=== PATIENT | male | born 1940 | race Caucasian/White ===

== ENCOUNTER 2018-07-23 06:45 | Day surgery (SDC) | payer MEDICARE ==
[~2018-07-23] VITALS: Ht 185.4 cm; Wt 108.9 kg
[~2018-07-23 06:45] MED LIST: DIGITEK PO; DOXA2TAB2 PO; FEXO-59 PO; FLUTICASONE NASAL NASAL; NIAC500C3 PO; PHENOBARBITAL PO; PROP40TA7 PO; RIVA20TA PO; SIMV40TA59 PO; SODIUM CHLORIDE 0.9% 1000ML 1,000 ML IV ONE; TADA20TA PO; ZOLPIDEM PO
[2018-07-23 07:32] VITALS: BP 164/68
[2018-07-23] MEDS ORDERED: PROPOFOL 10 MG/ML 20ML VIAL IV ONE (07:54)
[2018-07-23 08:14] VITALS: BP 130/74
[2018-07-23 08:19] VITALS: BP 130/74
[2018-07-23 08:24] VITALS: BP 134/74
== END 2018-07-23 08:47 | disposition home or self-care (01) ==
LOC: ENDO 06:45 → DAH 06:45 → ENDO 08:47
PROVIDERS: ATTEND Internal Medicine Gastroenterology
DX: Z12.11 Encounter for screening for malignant neoplasm of colon (principal); D12.2 Benign neoplasm of ascending colon; K63.5 Polyp of colon; D12.3 Benign neoplasm of transverse colon; D12.4 Benign neoplasm of descending colon; K62.1 Rectal polyp; Z86.010 Personal history of colon polyps; Z95.0 Presence of cardiac pacemaker; E78.2 Mixed hyperlipidemia; K57.30 Diverticulosis of large intestine without perforation or abscess without bleeding; Z98.890 Other specified postprocedural states; Z79.899 Other long term (current) drug therapy; Z68.37 Body mass index [BMI] 37.0-37.9, adult; Z79.01 Long term (current) use of anticoagulants
CPT/HCPCS: 45380; 45385; 88305; A4606; J2704; J7030

== ENCOUNTER → 2020-08-14 | Outpatient (CLI) | payer MEDICARE ==
[~2020-08-14] MED LIST changes: -DOXA2TAB2 PO; -FEXO-59 PO; -FLUTICASONE NASAL NASAL; -SODIUM CHLORIDE 0.9% 1000ML 1,000 ML IV ONE; -ZOLPIDEM PO
== END | disposition home or self-care (01) ==
LOC: RAH 11:02
PROVIDERS: ATTEND Urology
DX: N43.3 Hydrocele, unspecified (principal); K40.90 Unilateral inguinal hernia, without obstruction or gangrene, not specified as recurrent
CPT/HCPCS: 76870

== ENCOUNTER 2023-12-18 02:51 | Observation (INO) | payer MEDICARE ==
[~2023-12-18] VITALS: Ht 182.9 cm; Wt 118.3 kg
[2023-12-18] VITALS (8 sets, daily range): BP systolic 137–138; BP diastolic 72–73; PULSE 70–80; RESP 17–20; O2SAT 95–97
[~2023-12-18 02:51] MED LIST changes: -NIAC500C3 PO; +NIAC500C9 PO
[2023-12-18] MEDS: IpraTROPium/alBUTERol SULFATE 3 ML SOLUTION IH ONE ×2 (03:26→12:07)
[2023-12-18] MEDS: BUDESONIDE 0.5 MG/2 ML INH IH SCH (03:27)
[2023-12-18] MEDS: BUDESONIDE 0.5 MG/2 ML INH IH ONE (03:31)
[2023-12-18 04:08] LABS: BASOPHILS # (AUTO) 0.02 K/uL (0.00-0.20); BASOPHILS % (AUTO) 0.3 % (0.0-5.0); EOSINOPHILS # (AUTO) 0.06 K/uL (0.00-0.70); EOSINOPHILS % (AUTO) 0.8 % (0.0-8.0); IMMATURE GRANULOCYTE ABSOLUTE 0.02 K/uL (0-1); LYMPHOCYTES # (AUTO) 0.9 K/uL (1.0-4.8); LYMPHOCYTES % (AUTO) 12.7 % (21.0-51.0); MEAN CORPUSCULAR HEMOGLOBIN 31.3 pg (27.0-33.0); MEAN CORPUSCULAR HGB CONC 33.6 g/dL (32.0-36.0); MEAN CORPUSCULAR VOLUME 93.3 fL (79-99); MONOCYTES # (AUTO) 0.7 K/uL (0.1-1.0); MONOCYTES % (AUTO) 9.8 % (3.0-13.0); NEUTROPHILS # (AUTO) 5.6 K/uL (1.8-7.7); NEUTROPHILS % (AUTO) 76.1 % (40.0-77.0); PLATELET COUNT (AUTO) 87 K/uL (130-400); RED BLOOD CELL COUNT(AUTO) 3.86 MIL/uL (4.50-6.20); RED CELL DISTRIBUTION WIDTH 13.3 % (11.0-15.5); WHITE BLOOD COUNT (AUTO) 7.3 K/uL (4.8-10.8)
[2023-12-18] MEDS: Solu-medROL 125MG VIAL IVP ONE (04:22)
[2023-12-18] MEDS: ASPIRIN 325MG TAB PO ONE (04:22)
[2023-12-18 04:24] LABS: ALBUMIN 3.5 g/dL (3.5-5.0); BILIRUBIN,TOTAL 0.8 mg/dL (0.2-1.0); CREATININE 0.8 mg/dL (0.5-1.3); POTASSIUM 3.9 mmol/L (3.5-5.1); TOTAL PROTEIN, SERUM 7.2 g/dL (6.0-8.3)
[2023-12-18 05:12] LABS: B-TYPE NATRIURETIC PEPTIDE 143 pg/mL (0-100)
[2023-12-18 05:26] LABS: SARS-CoV-2, RNA, NAAT NEGATIVE SARS CoV-2 (NEGATIVE)
[2023-12-18] MEDS ORDERED: ALBUTEROL 0.083% 2.5 MG/3 ML INH IH PRN (06:30)
[2023-12-18] MEDS ORDERED: DEXTROSE 50%-WATER 50 ML DISP.SYRIN IV PRN (06:30)
[2023-12-18] MEDS ORDERED: acetaMINOPHEN 325 MG TAB PO PRN (06:30)
[2023-12-18] MEDS ORDERED: LACTULOSE 20 GM/30 ML UDCUP PO PRN (06:30)
[2023-12-18] MEDS ORDERED: hydrALAZine 20MG/ML VIAL IV PRN (06:30)
[2023-12-18] MEDS ORDERED: ONDANSETRON 4MG INJ IVP PRN (06:30)
[2023-12-18] MEDS ORDERED: GLUCAGON 1MG KIT 1 MG ML IM PRN (06:30)
[2023-12-18] MEDS: AZITHROMYCIN 250 MG TABLET PO SCH (06:30)
[2023-12-18] MEDS: FUROSEMIDE 40MG VIAL IV ONE (06:45)
[2023-12-18] MEDS: cefTRIAXone 1G VIAL IVPB ONE (06:45)
[2023-12-18] MEDS: INSULIN humuLIN R 100 UNIT/ML 3ML SQ SCH (07:30)
[2023-12-18] MEDS: PANTOPRAZOLE 40 MG TAB DR PO SCH (09:38)
[2023-12-18] MEDS: IpraTROPium/alBUTERol SULFATE 3 ML SOLUTION IH SCH (12:08)
[2023-12-18] MEDS ORDERED: DOXA8TAB81 PO (13:32)
[2023-12-18] MEDS ORDERED: FEXO-263 PO (13:32)
[2023-12-18] MEDS ORDERED: [UNRECOGNIZED DRUG - CODE] PO (13:32)
[2023-12-18] MEDS ORDERED: FOLI0.4T6 PO (13:32)
[2023-12-18] MEDS ORDERED: FINA5TAB41 PO (13:32)
[2023-12-18] MEDS ORDERED: GABA-529 PO (13:32)
[2023-12-18] MEDS ORDERED: CYAN-106 PO (13:32)
[2023-12-18] MEDS ORDERED: ROSU20TA73 PO (13:32)
[2023-12-18] MEDS ORDERED: MAGN100T PO (13:32)
[2023-12-18] MEDS ORDERED: LISI2.5T13 PO (13:32)
[2023-12-18] MEDS ORDERED: FURO20TA4 PO (13:32)
[2023-12-18] MEDS ORDERED: FERR159T2 PO (13:32)
[2023-12-18] MEDS: ENOXAPARIN SODIUM 40 MG/0.4 ML SYRINGE SQ SCH (16:56)
[2023-12-18] MEDS: AZITHROMYCIN 500MG+NS 250ML 250 ML IVPB SCH (20:03)
[2023-12-18] MEDS ORDERED: Solu-medROL 125MG VIAL IVP SCH (21:00)
[2023-12-18] MEDS ORDERED: PHENOBARBITAL 30 MG TAB PO SCH (21:00)
[2023-12-18] MEDS: ATORVASTATIN 40 MG TABLET PO SCH (21:46)
[2023-12-18] MEDS: FERROUS SULFATE 325 MG TABLET.DR PO SCH (21:47)
[2023-12-18] MEDS: PROPRANOLOL HCL 20 MG TAB PO SCH (21:47)
[2023-12-18] MEDS: NIACIN 500 MG SRTAB PO SCH (21:47)
[2023-12-18] MEDS: RIVAROXABAN 20 MG TABLET PO SCH (21:47)
[2023-12-19] VITALS (14 sets, daily range): BP systolic 107–144; BP diastolic 61–90; PULSE 68–85; RESP 17–20; O2SAT 95–97
[2023-12-19 03:59] LABS: RAPID GROUP A STREP negative (NEGATIVE)
[2023-12-19 04:09] LABS: INFLUENZA TYPE A Negative For Type A (NEGATIVE); INFLUENZA TYPE B Negative For Type B (NEGATIVE)
[2023-12-19 04:39] LABS: BASOPHILS # (AUTO) 0.01 K/uL (0.00-0.20); BASOPHILS % (AUTO) 0.1 % (0.0-5.0); HEMATOCRIT 34.3 % (42-54); IMMATURE GRANULOCYTE ABSOLUTE 0.05 K/uL (0-1); LYMPHOCYTES # (AUTO) 0.7 K/uL (1.0-4.8); LYMPHOCYTES % (AUTO) 10.1 % (21.0-51.0); MEAN CORPUSCULAR HEMOGLOBIN 30.8 pg (27.0-33.0); MEAN CORPUSCULAR HGB CONC 32.9 g/dL (32.0-36.0); MEAN CORPUSCULAR VOLUME 93.5 fL (79-99); MONOCYTES # (AUTO) 0.3 K/uL (0.1-1.0); MONOCYTES % (AUTO) 4.9 % (3.0-13.0); NEUTROPHILS # (AUTO) 5.6 K/uL (1.8-7.7); NEUTROPHILS % (AUTO) 84.2 % (40.0-77.0); PLATELET COUNT (AUTO) 109 K/uL (130-400); RED BLOOD CELL COUNT(AUTO) 3.67 MIL/uL (4.50-6.20); RED CELL DISTRIBUTION WIDTH 13.4 % (11.0-15.5); WHITE BLOOD COUNT (AUTO) 6.7 K/uL (4.8-10.8)
[2023-12-19 04:47] LABS: CREATININE 0.9 mg/dL (0.5-1.3); MAGNESIUM 2.3 mg/dL (1.80-2.40); PHOSPHORUS 3.3 mg/dL (2.5-4.9); POTASSIUM 4.7 mmol/L (3.5-5.1)
[2023-12-19] MEDS: CEFTRIAXONE 2GM VIAL IVPB SCH (06:42)
[2023-12-19] MEDS: Fexofenadine HCl 180 MG PO SCH (09:00)
[2023-12-19] MEDS ORDERED: MAGNESIUM GLYCINATE PO SCH (09:00)
[2023-12-19] MEDS: FUROSEMIDE 20 MG TABLET PO SCH (09:51)
[2023-12-19] MEDS: DOXAZOSIN MESYLATE 2 MG TABLET PO SCH (09:52)
[2023-12-19] MEDS: PHENOBARBITAL 1/4 GR TABLET PO SCH (09:52)
[2023-12-19] MEDS: FOLic ACID 1 MG TABLET PO SCH (09:53)
[2023-12-19] MEDS: LISINOPRIL 2.5 MG TABLET PO SCH (09:53)
[2023-12-19] MEDS: FINASTERIDE 5 MG TABLET PO SCH (09:54)
[2023-12-19] MEDS: DIGOXIN 125 MCG TABLET PO SCH (09:54)
[2023-12-19] MEDS: CYANOCOBALAMIN (VITAMIN B-12) 1,000 MCG TABLET PO SCH (09:55)
[2023-12-19] MEDS: GABApentin 100 MG CAPSULE PO SCH (09:55)
[2023-12-19] MEDS: Solu-medROL 125MG VIAL IVP SCH (18:55)
[2023-12-20] VITALS (10 sets, daily range): BP systolic 128–144; BP diastolic 59–78; PULSE 65–74; RESP 18–20; O2SAT 95–97
[2023-12-20] MEDS: LACTULOSE 20 GM/30 ML UDCUP PO ONE (13:52)
== END 2023-12-20 15:00 | disposition home or self-care (01) ==
LOC: EDH 02:51 → EDHIP 06:06 → 4DH 14:20
PROVIDERS: ADMIT Internal Medicine; ATTEND Internal Medicine
DX: J18.9 Pneumonia, unspecified organism (principal); Z20.822 Contact with and (suspected) exposure to COVID-19; I11.0 Hypertensive heart disease with heart failure; I50.22 Chronic systolic (congestive) heart failure; E78.5 Hyperlipidemia, unspecified; I48.91 Unspecified atrial fibrillation; G40.909 Epilepsy, unspecified, not intractable, without status epilepticus; Z79.899 Other long term (current) drug therapy
CPT/HCPCS: 96372; 96365; 96366 ×4; 96375; 96367; 99285; 82550; 84484; 80053; 83880; 85025 ×2; 87071; 87205; 82948 ×8; 36415 ×2; 87635; 71045; 71250; 93005; 84145; 96376 ×2; 83735; 84100; 80048; 87880; 87804 ×2; 93306; 94640; G0378 ×55; J2919 ×5; J0696 ×3; J0456 ×2; J1650; J1940; A4600; 94664

== ENCOUNTER 2024-05-02 07:45 | Inpatient (IN) | payer MEDICARE ==
[~2024-05-02] VITALS: Ht 182.9 cm; Wt 115.7 kg
[~2024-05-02 07:45] MED LIST changes: +CYAN-106 PO; -DIGITEK PO; +DOXA8TAB81 PO; +FERR159T2 PO; +FEXO-263 PO; +FINA5TAB41 PO; +FOLI0.4T6 PO; +FURO20TA4 PO; +GABA-529 PO; +LISI2.5T13 PO; +MAGN100T PO; +MELO-108 PO; +METH4TAB3 PO; +ROSU20TA98 PO; -SIMV40TA59 PO; -TADA20TA PO; +[UNRECOGNIZED DRUG - CODE] PO
[2024-05-02 08:16] LABS: BASOPHILS # (AUTO) 0.02 K/uL (0.00-0.20); BASOPHILS % (AUTO) 0.3 % (0.0-5.0); EOSINOPHILS # (AUTO) 0.16 K/uL (0.00-0.70); EOSINOPHILS % (AUTO) 2.3 % (0.0-8.0); HEMATOCRIT 35.7 % (42-54); IMMATURE GRANULOCYTE ABSOLUTE 0.03 K/uL (0-1); LYMPHOCYTES % (AUTO) 14.4 % (21.0-51.0); MEAN CORPUSCULAR HEMOGLOBIN 31.5 pg (27.0-33.0); MEAN CORPUSCULAR HGB CONC 33.6 g/dL (32.0-36.0); MEAN CORPUSCULAR VOLUME 93.7 fL (79-99); MONOCYTES # (AUTO) 0.6 K/uL (0.1-1.0); MONOCYTES % (AUTO) 8.2 % (3.0-13.0); NEUTROPHILS # (AUTO) 5.2 K/uL (1.8-7.7); NEUTROPHILS % (AUTO) 74.4 % (40.0-77.0); PLATELET COUNT (AUTO) 127 K/uL (130-400); RED BLOOD CELL COUNT(AUTO) 3.81 MIL/uL (4.50-6.20); RED CELL DISTRIBUTION WIDTH 14.3 % (11.0-15.5); WHITE BLOOD COUNT (AUTO) 6.9 K/uL (4.8-10.8)
[2024-05-02 08:25] LABS: CREATININE 0.8 mg/dL (0.5-1.3); POTASSIUM 3.6 mmol/L (3.5-5.1)
[2024-05-02 08:31] LABS: ALBUMIN 3.3 g/dL (3.5-5.0); BILIRUBIN,DIRECT 0.3 mg/dL (0.0-0.3); BILIRUBIN,TOTAL 0.8 mg/dL (0.2-1.0); TOTAL PROTEIN, SERUM 6.5 g/dL (6.0-8.3)
[2024-05-02 08:38] LABS: COVID19 (SARS ANTIGEN RAPID) PRESUMPTIVE NEGATIVE (NEGATIVE); INFLUENZA TYPE A Negative For Type A (NEGATIVE); INFLUENZA TYPE B Negative For Type B (NEGATIVE)
--- NOTE | 2024-05-02 08:40 | EKG ---
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
[2024-05-02] MEDS: CEFTRIAXONE 2GM VIAL IVPB ONE (08:46)
[2024-05-02] MEDS: furoSEMIDE 40MG VIAL IV ONE (08:48)
[2024-05-02 09:04] LABS: B-TYPE NATRIURETIC PEPTIDE 145 pg/mL (0-100)
--- NOTE | 2024-05-02 09:08 | HMCIMG ---
CHEST 1VW REASON: sob COMPARISON: 12/18/2023 FINDINGS: Single view of the chest was obtained. Lungs are clear. There is mild cardiomegaly, unchanged. There is no pulmonary vascular congestion. There is a small left pleural effusion with some associated atelectasis. Mediastinum and bony thorax appear unremarkable. Pacemaker is again noted. IMPRESSION: 1. Mild cardiomegaly. 2. Small left pleural effusion with some basilar atelectasis.
--- NOTE | 2024-05-02 09:15 | ERN ---
ED Note History of Present Illness Stated Complaint: SOB Chief Complaint: Shortness of Breath Time Seen by MD: 07:50 Dictation: 84-year-old male presents to the ED for evaluation of shortness breath onset 1 week ago. Patient reports cough and weakness, but denies any chest pain or any other associated symptoms at this time. Patient has history of a pacemaker. Allergies: Coded Allergies: No Known Drug Allergies (Unverified Allergy, Unknown, 01/25/14) Home Meds Active Scripts Methylprednisolone (Medrol) 4 Mg Tab.ds.pk, 1 TAB PO AD for 6 Days, #21 TAB 0 Refills 6 on day 1 then reduce by one tablet daily until gone Prov:RAQUEL OLIVARES ASSISTANT PROJECT ENGINEER 02/15/24 Meloxicam (Meloxicam) 15 Mg Tablet, 15 MG PO BID for 7 Days, #14 TAB Prov:RAQUEL OLIVARES ASSISTANT PROJECT ENGINEER 02/15/24 Reported Medications Gabapentin (Gabapentin) 100 Mg Capsule, 100 MG PO DAILY, CAP 12/18/23 Folic Acid (Folic Acid) 0.4 Mg Tablet, 800 MCG PO DAILY, TAB 12/18/23 Cyanocobalamin (Vitamin B-12) (Vitamin B12) 1,000 Mcg Tablet, 2000 MCG PO DAILY, TAB 12/18/23 Magnesium Glycinate (Mag Glycinate) 100 Mg Tablet, 500 MG PO DAILY, TAB 12/18/23 Finasteride (Finasteride) 5 Mg Tablet, 5 MG PO DAILY, TAB 12/18/23 Ferrous Sulfate, Dried (Iron) 159 Mg (45 Mg Iron) Tablet.er, 65 MG PO BID, TAB 12/18/23 Lisinopril (Lisinopril) 2.5 Mg Tablet, 2.5 MG PO DAILY, TAB 12/18/23 Rosuvastatin Calcium (Rosuvastatin Calcium) 20 Mg Tablet, 20 MG PO HS, TAB 12/18/23 Doxazosin Mesylate (Doxazosin Mesylate) 8 Mg Tablet, 8 MG PO DAILY, TAB 12/18/23 Fexofenadine HCl (Fexofenadine HCl) 180 Mg Tablet, 180 MG PO DAILY, TAB 12/18/23 Furosemide (Furosemide) 20 Mg Tablet, 20 MG PO DAILY, TAB 12/18/23 Digoxin (Digitek) 125 Mcg (0.125 Mg) Tablet, 125 MCG PO DAILY, TAB 12/18/23 Niacin (Niacin) 500 Mg Capsule.er, 500 MG PO BID, CAP 01/25/14 [Phenobarbital] No Conflict Check, 90 MG PO BID 01/25/14 Rivaroxaban (Xarelto) 20 Mg Tablet, 20 MG PO HS, TAB 01/25/14 Propranolol HCl (Propranolol HCl) 40 Mg Tablet, 40 MG PO HS, TAB 01/25/14 Past Medical History Past Medical History: Heart Disease, Hypertension Additional Past Medical Hx: CHRONIC BACK PAIN Surgical History: Pacer/AICD, Other Surgical History Other: AUREA KNEE SX Review of System Dictation Constitutional: Positive for weakness Negative for fever,chills, and weight loss Eyes: Negative for injury, pain,redness, and discharge ENT: Negative for injury,pain or swelling Cardiovascular: Negative for chest pain, palpitations, and edema Respiratory: Positive for shortness a breath and cough negative for wheezing, Abdomen/GI: Negative for abdominal pain, nausea, vomiting, diarrhea, and constipation Back: Negative for injury and pain : Negative for injury, bleeding and discharge MS/Extremity: Negative for injury and deformity Skin: Negative for rash, and discoloration Neuro: Negative for headache, weakness, numbness, tingling, and seizure Psych: Negative for suicide ideation, homicidal ideation, and hallucinations Initial Vital Sign VS Vital Signs Date Time Temp Pulse Resp B/P (MAP) Pulse Ox O2 Delivery O2 Flow Rate FiO2 05/02/24 07:49 74 17 151/83 98 Nasal Cannula 2.0 05/02/24 07:50 98.8 28 Physical Exam Dictation General: awake, alert, NAD Head/Face: Normocephalic, atraumatic Eyes: PERRL, EOMI, vision at baseline ENT: oral cavity clear, TMs clear, no signs of infection Neck: Trachea midline, supple, no nuchal rigidity Cardiovascular: RRR, normal S1/S2, No MRGs Respiratory: CTAB, no respiratory distress, crackles Abdomen: Soft, non-tender, diffuse abdominal swelling, normal bowel sounds, no guarding or rebound. Skin: Warm, dry, normal turgor, no rash MS/Extremity: Pulses equal, no cyanosis, neurovascular intact, bilateral lower extremity edema with diffuse erythema Neuro: COAx4, GCS 15, strength 5/5, CN 2-12 intact, normal cerebellar exam, normal gait, Psych: Normal behavior, mood, and affect normal Results (Laboratory/Radiology) Laboratory/Radiology Laboratory Tests Test 05/02/24 08:03 05/02/24 08:41 05/02/24 09:46 05/02/24 11:21 White Blood Count 6.9 K/uL (4.8-10.8) Red Blood Count 3.81 MIL/uL (4.50-6.20) L Hemoglobin 12.0 g/dL (14.0-18.0) L Hematocrit 35.7 % (42-54) L Mean Corpuscular Volume 93.7 fL (79-99) Mean Corpuscular Hemoglobin 31.5 pg (27.0-33.0) Mean Corpuscular Hemoglobin Concent 33.6 g/dL (32.0-36.0) Red Cell Distribution Width 14.3 % (11.0-15.5) Platelet Count 127 K/uL (130-400) L Mean Platelet Volume 11.0 fL (7.5-10.5) H Immature Granulocyte % (Auto) 0.4 % (0-1) Neutrophils (%) (Auto) 74.4 % (40.0-77.0) Lymphocytes (%) (Auto) 14.4 % (21.0-51.0) L Monocytes (%) (Auto) 8.2 % (3.0-13.0) Eosinophils (%) (Auto) 2.3 % (0.0-8.0) Basophils (%) (Auto) 0.3 % (0.0-5.0) Neutrophils # (Auto) 5.2 K/uL (1.8-7.7) Lymphocytes # (Auto) 1.0 K/uL (1.0-4.8) Monocytes # (Auto) 0.6 K/uL (0.1-1.0) Eosinophils # (Auto) 0.16 K/uL (0.00-0.70) Basophils # (Auto) 0.02 K/uL (0.00-0.20) Absolute Immature Granulocyte (auto 0.03 K/uL (0-1) Nucleated Red Blood Cells 0.0 % (0.0-0.19) Sodium Level 140 mmol/L (136-145) Potassium Level 3.6 mmol/L (3.5-5.1) Chloride Level 103 mmol/L (101-111) Carbon Dioxide Level 29 mmol/L (21-32) Blood Urea Nitrogen 4 mg/dL (7-18) L Creatinine 0.8 mg/dL (0.5-1.3) Glomerular Filtration Rate Calc 88 mL/min (>90) Random Glucose 116 mg/dL (70-105) H Lactic Acid Level 1.9 mmol/L (0.8-2.5) Total Calcium 8.7 mg/dL (8.5-10.1) Total Bilirubin 0.8 mg/dL (0.2-1.0) Direct Bilirubin 0.3 mg/dL (0.0-0.3) Aspartate Amino Transf (AST/SGOT) 26 U/L (10-37) Alanine Aminotransferase (ALT/SGPT) 27 U/L (12-78) Alkaline Phosphatase 136 U/L (50-136) Total Creatine Kinase 90 U/L (21-232) # Troponin I High Sensitivity 22 ng/L (4-75) B-Type Natriuretic Peptide 145 pg/mL (0-100) H Total Protein 6.5 g/dL (6.0-8.3) Albumin 3.3 g/dL (3.5-5.0) L Influenza Type A Antigen Negative For Type A Influenza Type B Antigen Negative For Type B SARS-CoV-2 Antigen (Rapid) PRESUMPTIVE NEGATIVE Procalcitonin < 0.05 ng/mL (0.05-0.5) L Thyroid Stimulating Hormone (TSH) 1.67 uIU/mL (0.36-3.74) Urine Color YELLOW (YELLOW) Urine Appearance CLEAR (CLEAR) Urine pH 5.5 (5.0-8.0) Urine Specific [place] 1.007 (1.001-1.031) Urine Protein NEGATIVE mg/dL (NEGATIVE) Urine Glucose (UA) NEGATIVE mg/dL (NEGATIVE) Urine Ketones NEGATIVE mg/dL (NEGATIVE) Urine Occult Blood NEGATIVE (NEGATIVE) Urine Nitrate NEGATIVE (NEGATIVE) Urine Bilirubin NEGATIVE mg/dL (NEGATIVE) Urine Urobilinogen 0.2 mg/dL (0.2-1.0) Urine Leukocyte Esterase NEGATIVE Jose/uL Whole Blood Glucose 117 MG/DL (70-110) H Labs Reviewed?: Yes EKG Comment: EKG 05/02/2024 time 8:36 a.m. ventricular rate 70, QRS D 136, QT 429. Ventricular paced rhythm pain no STEMI X-RAY Comment: REASON: sob ORDERING PHYSICIAN: PEG DE LEON MD PROCEDURE: CXR1VW - CHEST 1VW CHEST 1VW REASON: sob COMPARISON: 12/18/2023 FINDINGS: Single view of the chest was obtained. Lungs are clear. There is mild cardiomegaly, unchanged. There is no pulmonary vascular congestion. There is a small left pleural effusion with some associated atelectasis. Mediastinum and bony thorax appear unremarkable. Pacemaker is again noted. IMPRESSION: 1. Mild cardiomegaly. 2. Small left pleural effusion with some basilar atelectasis. DICTATED BY: YANIQUE HERNANDEZ MD DATE: 05/02/24904 ED Course ED Course Orders Procedure Category Date Status Time Covid19 (Sars Antigen LAB 05/02/24 Complete Rapid) 07:47 Influenza Type A & B, LAB 05/02/24 Complete Rapid 07:47 12 Lead Ekg Tracing- EKG 05/02/24 Complete Technical 08:00 B-Type Natriuretic LAB 05/02/24 Complete Peptide 08:00 Basic Metabolic Panel LAB 05/02/24 Complete 08:00 Blood Cult FAN 05/02/24 In Process 08:00 Cbc With Differential LAB 05/02/24 Complete 08:00 Creatine Kinase, Total LAB 05/02/24 Complete 08:00 Hepatic Function Panel LAB 05/02/24 Complete 08:00 Lactic Acid LAB 05/02/24 Complete 08:00 Troponin I High LAB 05/02/24 Complete Sensitivity 08:00 Urinalysis Profile LAB 05/02/24 Complete 08:00 Chest 1vw RAD 05/02/24 Resulted 08:00 Furosemide 40mg Vial PHA 05/02/24 Complete (Lasix 40mg Vial) 08:30 Ceftriaxone 2gm Vial PHA 05/02/24 Complete (Rocephin 2gm Inj) 08:30 Daily Weights CPOE 05/02/24 Transmitted 09:28 I&O Q Shift CPOE 05/02/24 Transmitted 09:28 Daily Fluid Intake CPOE 05/02/24 Transmitted Restriction 09:28 Famotidine 20mg Tab PHA 05/02/24 Complete (Pepcid 20mg Tab) 21:00 Diphenhydramine Hcl PHA 05/02/24 In Process (Benadryl Cap) 09:30 Diphenhydramine Hcl PHA 05/02/24 Complete (Benadryl Inj) 09:30 Acetaminophen 325 Tab PHA 05/02/24 In Process (Tylenol 325mg Tab 09:30 Acetaminophen 325 Tab PHA 05/02/24 In Process (Tylenol 325mg Tab 09:30 Ondansetron 4mg Inj PHA 05/02/24 In Process (Zofran 4mg Inj) 09:30 Mag/Alum/Simeth 30ml PHA 05/02/24 In Process (Maalox Plus 30ml) 09:30 Lactulose 20 Gm/30 Ml PHA 05/02/24 In Process Udcup (Constulose 09:30 Nitroglycerin 0.4mg PHA 05/02/24 In Process Sl Tab (Nitrostat) 09:30 Guaifenesin-Dm PHA 05/02/24 Complete 200/20mg 10ml 09:30 Famotidine 20mg Vial PHA 05/02/24 In Process (Pepcid 20mg Vial) 21:00 Procalcitonin LAB 05/02/24 Complete 09:28 Hydralazine 25mg Tab PHA 05/02/24 In Process (Muwmirqifo80sg Tab 09:30 Guaifenesin Sug-Zheng PHA 05/02/24 In Process 100 Mg/5ml (Robituss 09:30 Docusate Sodium 100 PHA 05/02/24 In Process Mg Cap (Colace 100mg 09:30 Polyethylene Glycol PHA 05/02/24 In Process 3350 (Miralax 3350 1 09:30 Lidocaine Hcl 2% PHA 05/02/24 In Process Viscous (Lidocaine Hcl 09:30 Natural Tears 15ml PHA 05/02/24 In Process (Artificial Tears) 09:30 Benzocaine/Menth/Cetylpyrd PHA 05/02/24 In Process Cl (Cepacol S 09:30 Admit Orders ADM 05/02/24 Transmitted 09:28 Activity: Ad Huong CPOE 05/02/24 Transmitted 09:28 Heart Healthy Diet DIET 05/02/24 Transmitted Lunch Thyroid Stimulating LAB 05/02/24 Complete Hormone 09:28 Respiratory Cult FAN 05/02/24 In Process W/Gram Stain 09:28 Initiate NADEEM 05/02/24 In Process Hyperglycemia Protoco 09:28 Insulin Lispro 100 PHA 05/02/24 In Process Unit/Ml 3ml (Humalog 11:30 Furosemide 40mg Vial PHA 05/03/24 In Process (Lasix 40mg Vial) 09:00 Us Venous Doppler US 05/02/24 Resulted Bilateral 09:34 Ceftriaxone 1g Vial PHA 05/03/24 In Process (Rocephine 1g Inj) 09:00 Edm Admit Bridge Order ADM 05/02/24 Transmitted 09:45 Enoxaparin Sodium 80 PHA 05/02/24 In Process Mg/0.8 Ml (Lovenox 21:00 Sodium Chloride 3% PHA 05/02/24 Complete Inh (Sodium Chloride 10:14 Current Medications Medications (Trade) Dose Ordered Sig/Latisha Route PRN Reason Start Time Stop Time Status Last Admin Dose Admin Ceftriaxone Sodium (Rocephin 2gm Inj) 2 gm ONCE ONCE IVPB 05/02/24 08:30 05/02/24 08:31 DC 05/02/24 08:46 Furosemide (LASix 40MG VIAL) 80 mg ONCE ONCE IV 05/02/24 08:30 05/02/24 08:31 DC 05/02/24 08:48 Vital Signs Date Time Temp Pulse Resp B/P (MAP) Pulse Ox O2 Delivery O2 Flow Rate FiO2 05/02/24 10:16 98.8 70 18 114/64 98 Nasal Cannula* 2.0 N/A 05/02/24 07:50 98.8 82 18 151/83 98 Nasal Cannula* 2 28 05/02/24 07:49 74 17 151/83 98 Nasal Cannula 2.0 HEART Score Response (Comments) Value History: Moderate suspicion (+1) 1 EKG: Normal 0 Age: > 65yrs (+2) 2 Risk Factors: 1-2 risk factors (+1) 1 Initial Troponin: Normal limit (0) 0 HEART Score Risk: Mod Risk for MACE (4-6) Total 4 Medical Decision Making MDM MDM: Differential diagnosis: Fluid overload, shortness of breath, CHF 0926- [facility] consult, accepts patient for admission Rationale: Tests considered and ordered secondary to shared decision making include: labs, ECG and radiology Previous outside records reviewed: Old ER visits. Risk of complication and/or morbidity or mortality of patient management: None Medications-Per medication reconciliation Need for hospitalization: Patient does meet criteria for hospitalization. Need for emergency major/minor surgery: No Patient's prior external medical records from other ER visits were reviewed by me as indicated. Prior testing and results from previous visits were reviewed. Prior tests were taken into account with medical decision making and resource utilization, independent historian/historians were used to obtain complete medical history. I independently interpreted the test that were performed, results were reviewed by me and considered findings on radiology if ordered. Medical management and examination interpretation discussions were had by me with other qualified healthcare professionals as indicated for the patient's care. DX & DISP Disposition: Inpatient Decision to Admit Date: May 02, 2024 Decision to Admit Time: 09:29 Departure Impression: Primary Impression: CHF (congestive heart failure) Additional Impression: Fluid overload Condition: Stable Referrals: BRYANNA HOU MD (PCP) I have reviewed, & agreed with my scribe's, documentation. (Entered by Alice Chong, acting as a scribe for Dr. De Leon) I personally scribed for PEG DE LEON MD ([email or web address]) on 05/02/24 at 09:15. Electronically submitted by Alice Chong ([email or web address]). I personally scribed for PEG DE LEON MD ([email or web address]) on 05/02/24 at 09:30. Electronically submitted by Alice Chong ([email or web address]). PEG DE LEON MD May 02, 2024 09:15
[2024-05-02] MEDS ORDERED: polyETHYLene GLYCol 3350 17 GM POWD.PACK PO PRN (09:30)
[2024-05-02] MEDS ORDERED: MAG/ALUM/SIMETH 30 ML UDCUP PO PRN (09:30)
[2024-05-02] MEDS ORDERED: acetaMINOPHEN 325 MG TAB PO PRN ×2 (09:30)
[2024-05-02] MEDS ORDERED: NITROGLYCERIN 0.4 MG SL TAB SL PRN (09:30)
[2024-05-02] MEDS ORDERED: BENZOCAINE/MENTH/CETYLPYRD CL 1 EACH LOZENGE MM PRN (09:30)
[2024-05-02] MEDS ORDERED: DiphenhydrAMINE HCL 50 MG/ML VIAL IV PRN (09:30)
[2024-05-02] MEDS ORDERED: hydrALAZine 25MG TABLET PO PRN (09:30)
[2024-05-02] MEDS ORDERED: ondanSETRON 4MG INJ IV PRN (09:30)
[2024-05-02] MEDS ORDERED: LIDOCAINE HCL 2% VISCOUS 30 ML, MAG/ALUM/SIMETH 30ML 30 ML, DICYCLOMINE HCL 20 MG PO PRN (09:30)
[2024-05-02] MEDS ORDERED: ARTIFICAL TEARS SOL 15 ML OP PRN (09:30)
[2024-05-02] MEDS ORDERED: guaiFENesin-DM 200/20MG 10ML PO PRN (09:30)
[2024-05-02] MEDS ORDERED: DiphenhydrAMINE HCL 25 MG CAPSULE PO PRN (09:30)
[2024-05-02] MEDS ORDERED: guaiFENesin SUGAR-FREE 100 MG/5 ML UDCUP PO PRN (09:30)
[2024-05-02] MEDS ORDERED: doCUSate SODIUM 100 MG CAP PO PRN (09:30)
[2024-05-02] MEDS ORDERED: LACTULOSE 20 GM/30 ML UDCUP PO PRN (09:30)
[2024-05-02 09:56] LABS: APPEARANCE,URINE CLEAR (CLEAR); BILIRUBIN,URINE NEGATIVE (NEGATIVE); COLOR,URINE YELLOW (YELLOW); GLUCOSE, URINE (UA) NEGATIVE (NEGATIVE); KETONES,URINE NEGATIVE (NEGATIVE); LEUKOCYTE ESTERASE ,URINE NEGATIVE Leu/uL (NEGATIVE); NITRATE,URINE NEGATIVE (NEGATIVE); OCCULT BLOOD,URINE NEGATIVE (NEGATIVE); PH,URINE 5.5 (5.0-8.0); PROTEIN,URINE NEGATIVE (NEGATIVE); UROBILINOGEN,URINE 0.2 mg/dL (0.2-1.0)
[2024-05-02 09:57] LABS: ADD UA MICROSCOPIC NO
--- NOTE | 2024-05-02 10:12 | HMCIMG ---
US VENOUS DOPPLER BILATERAL REASON: r/o DVT COMPARISON: None Technique: Bilateral venous doppler ultrasound was performed with spectral analysis and color flow imaging technique. FINDINGS: There is a normal appearance of the common femoral, deep femoral, the profunda femoris and popliteal veins. Proximal calf veins appear normal as well. There is normal response to compression and augmentation. There is no evidence of deep venous thrombosis. IMPRESSION: Normal bilateral lower extremity venous Doppler ultrasound.
[2024-05-02] MEDS: SODIUM CHLORIDE 3% FOR INHALATION 4 ML/AMP VIAL.NEB IH ONE ×2 (10:49→19:05)
[2024-05-02] MEDS: INSULIN LISpro 100 UNIT/ML 3ML SQ SCH (11:24)
--- NOTE | 2024-05-02 16:13 | HP ---
[facility] HISTORY & PHYSICAL Date Patient Seen: May 02, 2024 Time of Visit: 16:13 Supervising Physician: [Dr. Dove] Primary Care Physician: [Dr. Andrey Beaver] Outpatient Specialists: [ ] Inpatient Consults: [ ] PROBLEM LIST: Acute on chronic diastolic heart failure, POA Acute respiratory failure, POA, on 2LNC Suspected Asthma exacerbation Chronic lymphedema with anasarca Hypertension Hyperlipidemia AFib on Xarelto s/p PPM History of seizures Former smoker Plan: Start full dose lovenox for A-fib, in anticipation for procedure if needed Continue diuresis with bumex 1mg IV daily Monitor urine output, creatinine and electrolytes Daily weights, I&O and fluid restriction Order venous doppler to BLE Start rocephin empirically Order sputum culture, follow blood culture Start solumedrol 40mg IV BID Echocardiogram done on 12/21/2023 Monitor respiratory status Consider thora if not improved Resume home meds once available HPI: [This is an 84-year-old male with a history of chronic diastolic heart failure and atrial fibrillation on outpatient Xarelto presented to the ED for evaluation of cough and flu-like symptoms associated with the congestion. Patient was noted to be fluid overload with 3+ bilateral swelling to lower extremities reaching up to his lower abdomen. He also has bilateral wheezing on auscultation, denies any history of COPD, asthma, pulmonary fibrosis or home O2 use, although he was noted to have a Wixela inhaler on his listed medications. His labs on admission were generally unremarkable with WBC of 6, hemoglobin 12, platelets 127, sodium 140, potassium 3.6, bicarb 29, BUN 4, creatinine 0.8. His flu and COVID swabs were negative, BNP was 145, lactic acid was 1.9, LFTs within normal range. His CXR did show small left pleural effusion basilar atelectasis and even small R-sided effusion. Patient was treated with a dose of Lasix 80 mg and Rocephin in the ED. of note patient did have an echocardiogram on 12/19/2023 which revealed an LVEF of 65-70% with stage III diastolic dysfunction. Patient states he has had a productive cough with thick green phlegm since Thursday. Also admits orthopnea. Has 3+ swelling to bilateral lower extremities which is nonpitting. He is on supplemental oxygen with 2 LNC, and mild respiratory distress, but able to speak full sentences.] PAST MEDICAL HX: see above PAST SURGICAL HX: noncontributory SOCIAL HISTORY: No tobacco, ETOH, or illicit drug use Coded Allergies: No Known Drug Allergies (Unverified Allergy, Unknown, 01/25/14) REVIEW OF SYSTEMS: 12 point ROS reviewed with patient. Pertinent positives mentioned above. Otherwise negative. PHYSICAL EXAM: GENERAL: alert, weak, awake oriented x 3, on 2LNC HEENT: EOMI, Sclera non icteric, moist mucosa NECK: Supple, no JVD, trachea midline LUNGS: Mild respiratory distress, decreased breath sounds bilaterally. bilateral inspiratory and expiratory wheezing, rales at bilateral bases HEART: Regular rate and rhythm. Normal S1 and S2, without murmurs ABD: Abdomen soft, nontender. Bowel sounds present EXT: No clubbing, cyanosis, positive 3+ bilateral non-pitting edema NEURO: Alert and oriented to person, follows commands Vital Signs (last 8hr) Date Time Temp Pulse Resp B/P (MAP) Pulse Ox O2 Delivery O2 Flow Rate FiO2 05/02/24 14:37 98.8 70 18 121/56 99 Nasal Cannula* 2.0 N/A 05/02/24 10:16 98.8 70 18 114/64 98 Nasal Cannula* 2.0 N/A LABS: Hematology Labs: Test 05/02/24 08:03 Range/Units White Blood Count 6.9 4.8-10.8 K/uL Red Blood Count 3.81 L 4.50-6.20 MIL/uL Hemoglobin 12.0 L 14.0-18.0 g/dL Hematocrit 35.7 L 42-54 % Mean Corpuscular Volume 93.7 79-99 fL Mean Corpuscular Hemoglobin 31.5 27.0-33.0 pg Mean Corpuscular Hemoglobin Concent 33.6 32.0-36.0 g/dL Red Cell Distribution Width 14.3 11.0-15.5 % Platelet Count 127 L 130-400 K/uL Mean Platelet Volume 11.0 H 7.5-10.5 fL Immature Granulocyte % (Auto) 0.4 0-1 % Neutrophils (%) (Auto) 74.4 40.0-77.0 % Lymphocytes (%) (Auto) 14.4 L 21.0-51.0 % Monocytes (%) (Auto) 8.2 3.0-13.0 % Eosinophils (%) (Auto) 2.3 0.0-8.0 % Basophils (%) (Auto) 0.3 0.0-5.0 % Neutrophils # (Auto) 5.2 1.8-7.7 K/uL Lymphocytes # (Auto) 1.0 1.0-4.8 K/uL Monocytes # (Auto) 0.6 0.1-1.0 K/uL Eosinophils # (Auto) 0.16 0.00-0.70 K/uL Basophils # (Auto) 0.02 0.00-0.20 K/uL Absolute Immature Granulocyte (auto 0.03 0-1 K/uL Nucleated Red Blood Cells 0.0 0.0-0.19 % Chemistry Labs: Test 05/02/24 11:21 05/02/24 08:41 05/02/24 08:03 Range/Units Whole Blood Glucose 117 H 70-110 MG/DL Procalcitonin < 0.05 L 0.05-0.5 ng/mL Thyroid Stimulating Hormone (TSH) 1.67 0.36-3.74 uIU/mL Sodium Level 140 136-145 mmol/L Potassium Level 3.6 3.5-5.1 mmol/L Chloride Level 103 101-111 mmol/L Carbon Dioxide Level 29 21-32 mmol/L Blood Urea Nitrogen 4 L 7-18 mg/dL Creatinine 0.8 0.5-1.3 mg/dL Glomerular Filtration Rate Calc 88 >90 mL/min Random Glucose 116 H 70-105 mg/dL Lactic Acid Level 1.9 0.8-2.5 mmol/L Total Calcium 8.7 8.5-10.1 mg/dL Total Bilirubin 0.8 0.2-1.0 mg/dL Direct Bilirubin 0.3 0.0-0.3 mg/dL Aspartate Amino Transf (AST/SGOT) 26 10-37 U/L Alanine Aminotransferase (ALT/SGPT) 27 12-78 U/L Alkaline Phosphatase 136 50-136 U/L Total Creatine Kinase 90 # 21-232 U/L Troponin I High Sensitivity 22 4-75 ng/L B-Type Natriuretic Peptide 145 H 0-100 pg/mL Total Protein 6.5 6.0-8.3 g/dL Albumin 3.3 L 3.5-5.0 g/dL DIAGNOSTICS / RADIOLOGY RESULTS: CHEST 1VW REASON: sob COMPARISON: 12/18/2023 FINDINGS: Single view of the chest was obtained. Lungs are clear. There is mild cardiomegaly, unchanged. There is no pulmonary vascular congestion. There is a small left pleural effusion with some associated atelectasis. Mediastinum and bony thorax appear unremarkable. Pacemaker is again noted. IMPRESSION: 1. Mild cardiomegaly. 2. Small left pleural effusion with some basilar atelectasis. PLAN NEURO: Minimize central acting medications as possible. Maintain fall precautions, adequate lighting during the day PULMONARY: Supplemental 02 as needed. Maintain aspiration precautions at all times CARDIOVASCULAR: Follow hemodynamics. Vital signs per facility protocol GI & NUTRITION: Continue with nutritional support. Continue stool softeners and laxatives as needed. KIDNEYS & ELECTROLYTES: Strict monitoring of intake, output and overall fluid balance. Avoid nephrotoxic medications to the extent possible. Medications to be dosed according to renal function. Monitor electrolytes and replace as needed ENDOCRINE: Maintain blood glucose between 100-180 at all times. Hypoglycemia protocol in place INFECTIOUS DISEASE: Trend temperature, WBC and procalcitonin level Follow cultures, deescalate antibiotics as soon as possible. Panculture if new onset fever ONCOLOGY/HEMATOLOGY/COAGULATION: Monitor for s/s of bleeding Monitor hemoglobin, coagulation studies as needed SKIN: Pressure ulcer prevention per facility protocol Specialty mattress ORTHO/REHAB: Continue PT/OT Prophylaxis: Continue GI and DVT prophylaxis Code Status: Full Resuscitation Disposition: TBD Other: Total patient care time exceeds 35 minutes excluding all procedures. MARCIO LOZADA May 02, 2024 16:13
[2024-05-02] MEDS: Solu-medROL 125MG VIAL IVP SCH (17:41)
--- NOTE | 2024-05-02 18:15 | NUR ---
PATIENT ASSIGNED ROOM 331 AT THIS TIME
--- NOTE | 2024-05-02 19:58 | NUR ---
PATIENT DID NOT BRING HOME MEDICATIONS
[2024-05-02 20:45] VITALS: BP 150/83; PULSE 72; RESP 18; TEMP 99.7
[2024-05-02 20:50] VITALS: O2SAT 96
[2024-05-02 20:55] VITALS: O2SAT 97
[2024-05-02] MEDS ORDERED: FAMOTIDINE 20MG TAB PO SCH (21:00)
[2024-05-02] MEDS: FAMOTIDINE 20MG VIAL IV SCH (21:11)
[2024-05-02] MEDS: ENOXAPARIN SODIUM 80 MG/0.8 ML SQ ONE (21:11)
[2024-05-02] MEDS: IpraTROPium/alBUTERol SULFATE 3 ML SOLUTION IH PRN (23:39)
[2024-05-02 23:46] VITALS: PULSE 71; RESP 18; O2SAT 97
[2024-05-02 23:54] VITALS: BP 159/87; PULSE 78; RESP 18; TEMP 98.3
[2024-05-03] VITALS (14 sets, daily range): BP systolic 99–144; BP diastolic 59–76; PULSE 65–78; RESP 18–21; TEMP 98.1–99.2; O2SAT 93–98
[2024-05-03 04:08] LABS: CREATININE 0.9 mg/dL (0.5-1.3); POTASSIUM 3.8 mmol/L (3.5-5.1)
[2024-05-03 07:04] LABS: HEMATOCRIT 33.8 % (42-54); MEAN CORPUSCULAR HEMOGLOBIN 31.2 pg (27.0-33.0); MEAN CORPUSCULAR VOLUME 97.7 fL (79-99); RED BLOOD CELL COUNT(AUTO) 3.46 MIL/uL (4.50-6.20); RED CELL DISTRIBUTION WIDTH 14.3 % (11.0-15.5); WHITE BLOOD COUNT (AUTO) 5.9 K/uL (4.8-10.8)
[2024-05-03] MEDS: Solu-medROL 40MG VIAL IVP SCH ×2 (08:46→15:27)
[2024-05-03] MEDS: cefTRIAXone 1G VIAL IVPB SCH (08:46)
[2024-05-03] MEDS: BUMETANIDE 1MG/4ML VIAL IVP SCH ×2 (08:46→22:54)
[2024-05-03] MEDS ORDERED: furoSEMIDE 40MG VIAL IV SCH (09:00)
[2024-05-03] MEDS ORDERED: CHOL200079 PO (12:30)
[2024-05-03] MEDS ORDERED: RIVA20TA PO (12:30)
[2024-05-03] MEDS ORDERED: PHEN97.29 PO (12:30)
[2024-05-03] MEDS ORDERED: FLUT1BLS8 IH (12:30)
[2024-05-03] MEDS ORDERED: VITA1CAP85 PO (12:30)
[2024-05-03] MEDS ORDERED: CYAN-35 PO (12:30)
--- NOTE | 2024-05-03 12:30 | NUR ---
home medications have been reconcile
--- NOTE | 2024-05-03 12:36 | PN ---
[facility] PROGRESS NOTE Date Patient Seen: May 03, 2024 Time of Visit: 12:36 Supervising Physician: Hiram Dove MD Primary Care Physician: [Dr. Andrey Beaver] Outpatient Specialists: [ ] Inpatient Consults: [ ] PROBLEM LIST: Acute on chronic satge III diastolic heart failure, POA EF 65-70% on 12/19/23 Acute respiratory failure, POA, on 2LNC Suspected Asthma exacerbation Chronic lymphedema with anasarca Hypertension Hyperlipidemia AFib on Xarelto s/p PPM History of seizures Former smoker Plan: Start full dose lovenox for A-fib, in anticipation for procedure if needed Continue diuresis with bumex 1mg IV BID Monitor urine output, creatinine and electrolytes Daily weights, I&O and fluid restriction Order venous doppler to BLE Start rocephin empirically Order sputum culture, follow blood culture Start solumedrol 40mg IV BID Echocardiogram done on 12/21/2023 Monitor respiratory status Consider thora if not improved Resume home meds once available 2 D echo - Chest XR in am US ruq abdomen to assess for liver pathology 6 min walk before DC' -Arrange outpatient pulmonology referral for sleep study, PFT and follow-up management upon discharge [This is an 84-year-old male with a history of chronic diastolic heart failure and atrial fibrillation on outpatient Xarelto presented to the ED for evaluation of cough and flu-like symptoms associated with the congestion. Patient was not ed to be fluid overload with 3+ bilateral swelling to lower extremities reaching up to his lower abdomen. He also has bilateral wheezing on auscultation, denies any history of COPD, asthma, pulmonary fibrosis or home O2 use, although he was noted to have a Wixela inhaler on his listed medications. INTERVAL HISTORY: 05/03-patient is oriented to be awake alert and oriented x3. He does report some shortness breath with minimal exertion he currently is on 2 L via nasal cannula saturating 93% wheezing to bilateral lobes on auscultation. Patient has a anasarca, bilateral pedal edema three he has been urinating minimal of 300 mL of urine output overnight with Bumex of 1 mg IV push daily. we will increased today to 1 mg IV push b.i.d.. and metolazone 5mg po q week. We will reassess need for diuretic daily and wean as possible. monitoring kidney function and Josephine closely. We will continue to wean O2 as tolerated. 2d echo pending. patient had ultrasound of bilateral lower extremities negative for DVT. We will order ultrasound of the RUQ to rule out liver pathology. Respiratory culture growing normal oral domenic, studies to continue. Patient continues empirically on doxycycline and Rocephin. He continues with Atrovent treatments q.4 hours. Solu-Medrol at 40 mg IV push q.8 hours for now due to increased wheezing. resum ed pt's home meds including xarelto. REVIEW OF SYSTEMS: 12 point ROS reviewed with patient. Pertinent positives mentioned above. Otherwise negative. PHYSICAL EXAM: GENERAL: alert, weak, awake oriented x 3, on 2LNC HEENT: EOMI, Sclera non icteric, moist mucosa NECK: Supple, no JVD, trachea midline LUNGS: Mild respiratory distress, decreased breath sounds bilaterally. bilateral inspiratory and expiratory wheezing, rales at bilateral bases HEART: Regular rate and rhythm. Normal S1 and S2, without murmurs ABD: Abdomen soft, nontender. Bowel sounds present EXT: No clubbing, cyanosis, positive 3+ bilateral non-pitting edema NEURO: Alert and oriented to person, follows commands Vital Signs (last 8hr) Date Time Temp Pulse Resp B/P (MAP) Pulse Ox O2 Delivery O2 Flow Rate FiO2 05/03/24 11:32 98.2 74 18 133/59 96 Room Air 05/03/24 11:19 69 18 N/A Room Air 21 05/03/24 11:18 69 18 05/03/24 08:00 98.1 74 20 138/65 97 Room Air 05/03/24 08:00 97 Nasal Cannula* 2 28 05/03/24 07:10 65 18 N/Cannula Low lpm 2.0 05/03/24 07:00 68 18 N/Cannula Low lpm 2.0 05/03/24 06:59 68 18 LABS: Hematology Labs: Test 05/03/24 03:52 05/02/24 08:03 Range/Units White Blood Count 5.9 4.8-10.8 K/uL Red Blood Count 3.46 L 4.50-6.20 MIL/uL Hemoglobin 10.8 L 14.0-18.0 g/dL Hematocrit 33.8 L 42-54 % Mean Corpuscular Volume 97.7 79-99 fL Mean Corpuscular Hemoglobin 31.2 27.0-33.0 pg Mean Corpuscular Hemoglobin Concent 32.0 32.0-36.0 g/dL Red Cell Distribution Width 14.3 11.0-15.5 % Platelet Count 127 L 130-400 K/uL Mean Platelet Volume 11.4 H 7.5-10.5 fL Nucleated Red Blood Cells 0.0 0.0-0.19 % Immature Granulocyte % (Auto) 0.4 0-1 % Neutrophils (%) (Auto) 74.4 40.0-77.0 % Lymphocytes (%) (Auto) 14.4 L 21.0-51.0 % Monocytes (%) (Auto) 8.2 3.0-13.0 % Eosinophils (%) (Auto) 2.3 0.0-8.0 % Basophils (%) (Auto) 0.3 0.0-5.0 % Neutrophils # (Auto) 5.2 1.8-7.7 K/uL Lymphocytes # (Auto) 1.0 1.0-4.8 K/uL Monocytes # (Auto) 0.6 0.1-1.0 K/uL Eosinophils # (Auto) 0.16 0.00-0.70 K/uL Basophils # (Auto) 0.02 0.00-0.20 K/uL Absolute Immature Granulocyte (auto 0.03 0-1 K/uL Chemistry Labs: Test 05/03/24 10:43 05/03/24 03:52 05/02/24 08:41 05/02/24 08:03 Range/Units Whole Blood Glucose 166 H 70-110 MG/DL Sodium Level 141 136-145 mmol/L Potassium Level 3.8 3.5-5.1 mmol/L Chloride Level 104 101-111 mmol/L Carbon Dioxide Level 30 21-32 mmol/L Blood Urea Nitrogen 10 7-18 mg/dL Creatinine 0.9 0.5-1.3 mg/dL Glomerular Filtration Rate Calc 85 >90 mL/min Random Glucose 130 H 70-105 mg/dL Total Calcium 8.5 8.5-10.1 mg/dL Magnesium Level 2.00 1.80-2.40 mg/dL Procalcitonin < 0.05 L 0.05-0.5 ng/mL Thyroid Stimulating Hormone (TSH) 1.67 0.36-3.74 uIU/mL Lactic Acid Level 1.9 0.8-2.5 mmol/L Total Bilirubin 0.8 0.2-1.0 mg/dL Direct Bilirubin 0.3 0.0-0.3 mg/dL Aspartate Amino Transf (AST/SGOT) 26 10-37 U/L Alanine Aminotransferase (ALT/SGPT) 27 12-78 U/L Alkaline Phosphatase 136 50-136 U/L Total Creatine Kinase 90 # 21-232 U/L Troponin I High Sensitivity 22 4-75 ng/L B-Type Natriuretic Peptide 145 H 0-100 pg/mL Total Protein 6.5 6.0-8.3 g/dL Albumin 3.3 L 3.5-5.0 g/dL DIAGNOSTICS / RADIOLOGY RESULTS: [ ] PLAN NEURO: Minimize central acting medications as possible. Maintain fall precautions, adequate lighting during the day PULMONARY: Supplemental 02 as needed. Maintain aspiration precautions at all times CARDIOVASCULAR: Follow hemodynamics. Vital signs per facility protocol GI & NUTRITION: Continue with nutritional support. Continue stool softeners and laxatives as needed. KIDNEYS & ELECTROLYTES: Strict monitoring of intake, output and overall fluid balance. Avoid nephrotoxic medications to the extent possible. Medications to be dosed according to renal function. Monitor electrolytes and replace as needed ENDOCRINE: Maintain blood glucose between 100-180 at all times. Hypoglycemia protocol in place INFECTIOUS DISEASE: Trend temperature, WBC and procalcitonin level Follow cultures, deescalate antibiotics as soon as possible. Panculture if new onset fever ONCOLOGY/HEMATOLOGY/COAGULATION: Monitor for s/s of bleeding Monitor hemoglobin, coagulation studies as needed SKIN: Pressure ulcer prevention per facility protocol Specialty mattress ORTHO/REHAB: Continue PT/OT Prophylaxis: Continue GI and DVT prophylaxis Code Status: Full Resuscitation Disposition: TBD Other: Total patient care time exceeds 35 minutes excluding all procedures. EH VIVEROS [facility] May 03, 2024 12:36
[2024-05-03] MEDS: metoLAZONE 2.5 MG TABLET PO SCH (13:51)
--- NOTE | 2024-05-03 14:30 | NUR ---
Order received and patient seen. Patient was only able to make it one way as he became SOB and fatigue. Patient had to be taken back to room in . Nurse, Alaiyah, informed. PT team to follow. Addendum: 05/03/24 at 1529 by RADHA OJEDA PT Amended: Links added.
--- NOTE | 2024-05-03 16:11 | NUR ---
DCP Pt awake, alert, oriented X3 lives with friend Ria Hernandez [phone]. PCP is Andrey Beaver. Pt does not have any medical equipment and able to perform ADLs. Anticipates discharge for home. Addendum: 05/03/24 at 1613 by AIDAN GERARD RN Amended: Links added.
[2024-05-03] MEDS: BUDESONIDE 0.5 MG/2 ML INH IH SCH (16:45)
--- NOTE | 2024-05-03 17:37 | NUR ---
RUN OF SVT HAD A RUN OF SVT. Kofi VIVEROS NP NOTIFIED. ORDER FOR STAT LAB WORK AND TO INTEROGATE PM. PER PT DOES NOT HAVE CARD OR KNOW WHAT DEVICE WAS IMPLANTED. ONLY THAT DR. ARAUJO PLACED IT AT [facility]. OFFICE CLOSED FOR NEW YEARS.
[2024-05-03] MEDS ORDERED: IpraTROPium 0.5 MG/2.5 ML INH IH SCH (18:00)
[2024-05-03] MEDS: IpraTROPium 0.5 MG/2.5 ML INH IH SCH (18:20)
[2024-05-03 18:36] LABS: CREATININE 1.1 mg/dL (0.5-1.3); POTASSIUM 4.1 mmol/L (3.5-5.1)
[2024-05-03 18:39] LABS: PHOSPHORUS 3.2 mg/dL (2.5-4.9)
[2024-05-03] MEDS: DOXYCYCLINE HYCLATE 100 MG TABLET PO SCH (20:26)
[2024-05-03] MEDS: atorVAStatin 40 MG TABLET PO SCH ×2 (20:26→23:00)
[2024-05-03] MEDS: DOXAZOSIN MESYLATE 2 MG TABLET PO SCH (20:34)
[2024-05-03] MEDS: FERROUS SULFATE DRIED 65 MG PO SCH (20:35)
[2024-05-03] MEDS: NIACIN 500 MG PO SCH (20:35)
[2024-05-03] MEDS: FLUTICASONE PROPION IH SCH (20:35)
[2024-05-03] MEDS: PHENOBARBITAL 97.2 MG PO SCH (20:35)
[2024-05-03] MEDS: SALMETEROL IH SCH (20:35)
--- NOTE | 2024-05-03 21:00 | NUR ---
MEDICATION Educated patient on importance of bringing in seizure medication from home, verbalized understanding.
[2024-05-03] MEDS: PROPRANOLOL HCL 20 MG TAB PO SCH (22:53)
[2024-05-04] VITALS (16 sets, daily range): BP systolic 132–156; BP diastolic 74–88; PULSE 70–82; RESP 16–20; TEMP 98–98.3; O2SAT 94–96
[2024-05-04 05:49] LABS: HEMATOCRIT 32.9 % (42-54); MEAN CORPUSCULAR HEMOGLOBIN 30.8 pg (27.0-33.0); MEAN CORPUSCULAR HGB CONC 33.1 g/dL (32.0-36.0); MEAN CORPUSCULAR VOLUME 92.9 fL (79-99); PLATELET COUNT (AUTO) 142 K/uL (130-400); RED BLOOD CELL COUNT(AUTO) 3.54 MIL/uL (4.50-6.20); RED CELL DISTRIBUTION WIDTH 13.9 % (11.0-15.5)
[2024-05-04 06:03] LABS: ALBUMIN 3.2 g/dL (3.5-5.0); BILIRUBIN,TOTAL 0.7 mg/dL (0.2-1.0); CREATININE 0.9 mg/dL (0.5-1.3); POTASSIUM 3.6 mmol/L (3.5-5.1); TOTAL PROTEIN, SERUM 6.4 g/dL (6.0-8.3)
[2024-05-04 06:14] LABS: B-TYPE NATRIURETIC PEPTIDE 179 pg/mL (0-100)
[2024-05-04 06:31] LABS: LYMPHOCYTES % (MANUAL) 27 % (22-44); MAN.DIFF COMMENT-IMPRESSION MANUAL DIFFERENTIAL; MONOCYTES % (MANUAL) 8 % (2-9); SEGMENTED NEUTROPHILS % 65 % (40-70); TOTAL CELLS COUNTED 100; WBC MORPHOLOGY SMUDGE CELLS 1+
[2024-05-04] MEDS: CEFTRIAXONE 2GM VIAL IVPB SCH (08:37)
[2024-05-04] MEDS: MAGNESIUM GLYCINATE PO SCH (08:38)
[2024-05-04] MEDS: CHOLECALCIFEROL 50 MCG PO SCH (08:38)
[2024-05-04] MEDS: FOLIC ACID 800 MCG PO SCH (08:38)
[2024-05-04] MEDS: ceTIRIzine HCL 5 MG TABLET PO SCH (08:38)
[2024-05-04] MEDS: CYANOCOBALAMIN (VITAMIN B-12) 1,000 MCG TABLET PO SCH (08:39)
[2024-05-04] MEDS: finaSTERide 5 MG TABLET PO SCH (08:39)
[2024-05-04] MEDS: RIVAROXABAN 20 MG TABLET PO SCH (08:39)
[2024-05-04] MEDS: LISINOPRIL 2.5 MG TABLET PO SCH (08:39)
[2024-05-04] MEDS: DIGOxin 125 MCG TABLET PO SCH (08:40)
--- NOTE | 2024-05-04 08:52 | HMCIMG ---
PORTABLE CHEST RADIOGRAPH INDICATION: hypoxic resp failure COMPARISON: 05/02/2024 FINDINGS: Costophrenic angles are not included on this study. Left sided single chamber pacer and continuous lead remain in customary position. Heart size is normal. Mild calcific plaque is present along the aortic arch ramirez. The pulmonary vascularity and michael appear normal. No abnormal pulmonary parenchymal opacity or consolidation identified. No large pleural effusion noted. No pneumothorax detected. IMPRESSION: Limitations as reported. No radiographic evidence for any acute cardiopulmonary process.
--- NOTE | 2024-05-04 09:44 | HMCIMG ---
ULTRASOUND ABDOMEN LIMITED INDICATION: Right upper abdominal pain COMPARISON: None FINDINGS: The liver is coarse in echotexture and slightly nodular in contour; no focal lesion demonstrated. Main portal vein is patent, and normal direction of vascular flow demonstrated. The common bile duct diameter measures 4.0 mm. Gallbladder is contracted without gross evidence for calculi, sludge or pericholecystic fluid. No sonographic Holland's sign elicited by the ultrasound heating operators engineer. Wall thickness measures 4.0 mm. Pancreas is obscured by overlying bowel gas. The right kidney measures 12.0 x 6.0 x 6.0 cm,and is normal in echogenicity, without evidence for hydronephrosis.No shadowing stones demonstrated. Trace perihepatic free fluid. IMPRESSION: Limitations as reported. Findings suggesting cirrhotic or other underlying liver disease and perhaps associated trace perihepatic free fluid.
--- NOTE | 2024-05-04 12:58 | PN ---
[facility] PROGRESS NOTE Date Patient Seen: May 04, 2024 Time of Visit: 12:58 Supervising Physician: Nik Schmidt MD Primary Care Physician: [Dr. Andrey Beaver] Outpatient Specialists: [ ] Inpatient Consults: [ ] PROBLEM LIST: Acute on chronic satge III diastolic heart failure, POA EF 55 -60% Severe Pulmonary HTN RVSP 78.8 pulmonary hypertension. pending (PE rule out) Well's score of 4.5 for PE Liver Cirrhosis Meld Score 1.39 (multifactorial fatty vs hx of alcohols use) POA Acute respiratory failure, POA, on 2LNC Suspected Asthma exacerbation Chronic lymphedema with anasarca Neg for DVT Hypertension Hyperlipidemia AFib on Xarelto s/p PPM History of seizures Former smoker former alcohol use. [This is an 84-year-old male with a history of chronic diastolic heart failure and atrial fibrillation on outpatient Xarelto presented to the ED for evaluation of cough and flu-like symptoms associated with the congestion. Patient was noted to be fluid overload with 3+ bilateral swelling to lower extremities reaching up to his lower abdomen. He also has bilateral wheezing on auscultation, denies any history of COPD, asthma, pulmonary fibrosis or home O2 use, although he was noted to have a Wixela inhaler on his listed medications. INTERVAL HISTORY: 05/03-patient is oriented to be awake alert and oriented x3. He does report some shortness breath with minimal exertion he currently is on 2 L via nasal cannula saturating 93% wheezing to bilateral lobes on auscultation. Patient has a anasarca, bilateral pedal edema three he has been urinating minimal of 300 mL of urine output overnight with Bumex of 1 mg IV push daily. we will increased today to 1 mg IV push b.i.d.. and metolazone 5mg po q week. We will reassess need for diuretic daily and wean as possible. monitoring kidney function and Josephine closely. We will continue to wean O2 as tolerated. 2d echo pending. patient had ultrasound of bilateral lower extremities negative for DVT. We will order ultrasound of the RUQ to rule out liver pathology. Respiratory culture growing normal oral domenic, studies to continue. Patient continues empirically on doxycycline and Rocephin. He continues with Atrovent treatments q.4 hours. Solu-Medrol at 40 mg IV push q.8 hours for now due to increased wheezing. resumed pt's home meds including xarelto. 05/04/24-patient is awake alert and oriented three. He has been weaned off oxygen today.. Saturating 94% on room air hemodynamically stable and has been afebrile. Urine output 2.3 L in last 24 hours with a weight of 2 kg down from admission. CBC and chemistry unremarkable similar to yesterday. INR is 1.39 PT of 15.1. Abdominal ultrasound found shows limitation due to body habitus per findings suggestive of Modic or other underlying liver disease and perhaps associated trace perihepatic free fluid. On 2D echo patient shows to have device lead in the right ventricle, left atrium is mildly dilated, IVC is dilated and collapses less than 50% with inspiration, left ventricular cavity size is normal. There is a mild concentric left ventricular hypertrophy. He was normal left ventricular segmental wall motion. LVEF is 55-60% with indeterminate diastolic dysfunction. The RV systolic function is reduced. RVSP of 79 mm Hg consistent with severe pulmonary hypertension. Aortic valve is trileaflet no coronary cusp peep is heavily thickened there is a trivial aortic valve L no pericardial effusion. We will have to rule out PE due to severe pulmonary HTN. CTA in am if D-Dimer elevated. US with Doppler of rt upper quadrant to assess for possible hepatic thrombus for now. if work up is neg for PE and hepatic thrombus will DC home tomorrow. Pt scheduled for 6 min walk in am. REVIEW OF SYSTEMS: 12 point ROS reviewed with patient. Pertinent positives mentioned above. Otherwise negative. PHYSICAL EXAM: GENERAL: alert, weak, awake oriented x 3, on 2LNC HEENT: EOMI, Sclera non icteric, moist mucosa NECK: Supple, no JVD, trachea midline LUNGS: Lung sounds are clear to all lobes, slightly diminished. no further wheezing. HEART: Regular rate and rhythm. Normal S1 and S2, without murmurs ABD: Abdomen soft, nontender. Bowel sounds present EXT: No clubbing, cyanosis, positive 2+ bilateral non-pitting edema NEURO: Alert and oriented to person, follows commands Vital Signs (last 8hr) Date Time Temp Pulse Resp B/P (MAP) Pulse Ox O2 Delivery O2 Flow Rate FiO2 05/04/24 10:31 74 20 05/04/24 09:40 70 05/04/24 08:40 70 05/04/24 08:00 94 Nasal Cannula* 2 28 05/04/24 06:40 70 20 N/A Room Air 21 05/04/24 06:39 70 20 LABS: Hematology Labs: Test 05/04/24 05:20 Range/Units White Blood Count 9.0 4.8-10.8 K/uL Red Blood Count 3.54 L 4.50-6.20 MIL/uL Hemoglobin 10.9 L 14.0-18.0 g/dL Hematocrit 32.9 L 42-54 % Mean Corpuscular Volume 92.9 79-99 fL Mean Corpuscular Hemoglobin 30.8 27.0-33.0 pg Mean Corpuscular Hemoglobin Concent 33.1 32.0-36.0 g/dL Red Cell Distribution Width 13.9 11.0-15.5 % Platelet Count 142 130-400 K/uL Mean Platelet Volume 10.9 H 7.5-10.5 fL Immature Granulocyte % (Auto) 0-1 % Neutrophils (%) (Auto) 40.0-77.0 % Lymphocytes (%) (Auto) 21.0-51.0 % Monocytes (%) (Auto) 3.0-13.0 % Eosinophils (%) (Auto) 0.0-8.0 % Basophils (%) (Auto) 0.0-5.0 % Neutrophils # (Auto) 1.8-7.7 K/uL Lymphocytes # (Auto) 1.0-4.8 K/uL Monocytes # (Auto) 0.1-1.0 K/uL Eosinophils # (Auto) 0.00-0.70 K/uL Basophils # (Auto) 0.00-0.20 K/uL Absolute Immature Granulocyte (auto 0-1 K/uL Segmented Neutrophils % 65 40-70 % Lymphocytes % (Manual) 27 22-44 % Monocytes % (Manual) 8 2-9 % Nucleated Red Blood Cells 0.0 0.0-0.19 % Differential Comment MANUAL DIFFERENTIAL White Cell Morphology Comment SMUDGE CELLS 1+ Platelet Morphology Comment See comments Red Blood Cell Morphology HYPOCHROM CELLS 1+ Chemistry Labs: Test 05/04/24 10:51 05/04/24 05:20 05/03/24 18:14 Range/Units Whole Blood Glucose 162 H 70-110 MG/DL Sodium Level 140 136-145 mmol/L Potassium Level 3.6 3.5-5.1 mmol/L Chloride Level 102 101-111 mmol/L Carbon Dioxide Level 31 21-32 mmol/L Blood Urea Nitrogen 16 7-18 mg/dL Creatinine 0.9 0.5-1.3 mg/dL Glomerular Filtration Rate Calc 85 >90 mL/min Random Glucose 114 H 70-105 mg/dL Lactic Acid Level 1.5 0.8-2.5 mmol/L Total Calcium 8.4 L 8.5-10.1 mg/dL Total Bilirubin 0.7 0.2-1.0 mg/dL Aspartate Amino Transf (AST/SGOT) 26 10-37 U/L Alanine Aminotransferase (ALT/SGPT) 25 12-78 U/L Alkaline Phosphatase 123 50-136 U/L Ammonia 19 11-32 umol/L B-Type Natriuretic Peptide 179 H 0-100 pg/mL Total Protein 6.4 6.0-8.3 g/dL Albumin 3.2 L 3.5-5.0 g/dL Procalcitonin < 0.05 L 0.05-0.5 ng/mL Phosphorus Level 3.2 2.5-4.9 mg/dL Magnesium Level 2.00 1.80-2.40 mg/dL DIAGNOSTICS / RADIOLOGY RESULTS: [ ] IMAGING REPORT Signed PATIENT: VIKY PARKER MR#: [id number] : 1940 SEX: M AGE: 84 LOCATION: [facility] ORDER 2300 STATUS: ADM IN REPORT#: [id number] SERVICE 0600 REASON: hypoxic resp failure ORDERING PHYSICIAN: EH VIVEROS PROCEDURE: CXR1VW - CHEST 1VW PORTABLE CHEST RADIOGRAPH INDICATION: hypoxic resp failure COMPARISON: 05/02/2024 FINDINGS: Costophrenic angles are not included on this study. Left sided single chamber pacer and continuous lead remain in customary position. Heart size is normal. Mild calcific plaque is present along the aortic arch ramirez. The pulmonary vascularity and michael appear normal. No abnormal pulmonary parenchymal opacity or consolidation identified. No large pleural effusion noted. No pneumothorax detected. IMPRESSION: Limitations as reported. No radiographic evidence for any acute cardiopulmonary process. DICTATED BY: KYRIE RAMIREZ MD DATE: 05/04/24 0849 ELECTRONICALLY SIGNED BY: KYRIE RAMIREZ MD DATE: 05/04/24 0852 Signed PATIENT: VIKY PARKER MR#: [id number] : 1940 SEX: M AGE: 84 LOCATION: [facility] ORDER 2300 STATUS: ADM IN REPORT#: [id number] SERVICE 0600 REASON: abdominal swellling ORDERING PHYSICIAN: EH VIVEROS PROCEDURE: [id number] - US ABDOMINAL RUQ\LTD ULTRASOUND ABDOMEN LIMITED INDICATION: Right upper abdominal pain COMPARISON: None FINDINGS: The liver is coarse in echotexture and slightly nodular in contour; no focal lesion demonstrated. Main portal vein is patent, and normal direction of vascular flow demonstrated. The common bile duct diameter measures 4.0 mm. Gallbladder is contracted without gross evidence for calculi, sludge or pericholecystic fluid. No sonographic Holland's sign elicited by the ultrasound bundling machine operator. Wall thickness measures 4.0 mm. Pancreas is obscured by overlying bowel gas. The right kidney measures 12.0 x 6.0 x 6.0 cm,and is normal in echogenicity, without evidence for hydronephrosis.No shadowing stones demonstrated. Trace perihepatic free fluid. IMPRESSION: Limitations as reported. Findings suggesting cirrhotic or other underlying liver disease and perhaps associated trace perihepatic free fluid. DICTATED BY: KYRIE RAMIREZ MD DATE: 05/04/24 0940 ELECTRONICALLY SIGNED BY: KYRIE RAMIREZ MD DATE: 05/04/24 0944 PATIENT: VIKY PARKER MR#: [id number] : 1940 SEX: M AGE: 84 LOCATION: [facility] ORDER 1341 STATUS: ADM IN REPORT#: [id number] SERVICE 1329 REASON: CHF ORDERING PHYSICIAN: EH VIVEROS PROCEDURE: ECHO CMP - ECHO 2-D COMPLETE APPROVED REPORT EXAM: Two-dimensional and M-mode echocardiogram with Doppler and color Doppler. Study Details: Hx: morbidly obese, INDICATION ICD: Congetive heart failure 2D Dimensions RVDd 4.7 cm LVEF(%) 55.2 (>50%) LVED Vol(simp.) 135.0 mL IVSd 1.1 (0.7-1.1cm) FS(%) 29 % LVES Vol(simp.) 55.2 mL LVDd 5.5 (3.8-5.6cm) LA (2D) 5.1 (1.6-4.0cm) LVEF(%, simp.) 59 % PWd 1.1 (0.7-1.1cm) Ao Root(2D) 3.5 (2.0-3.7cm) LA ESV INDEX (4CH) 39.00 mL/m2 IVSs 1.4 cm LVOT diam 2.3 (1.8-2.4cm) LVDs 3.9 (2.5-4.0cm) PWs 1.4 cm M-Mode Dimensions EPSS 1.0 cm LA (MM) 5.4 (1.6-4.0cm) Ao Root(MM) 3.8 (2.0-3.7cm) Aortic Valve AoV VTI 0.2 m Ao Mean GR 4.0 mmHg LVOT VTI 0.23 m SHILRENE (VMAX) 4.3 cm2 SHIRLENE (VTI) 4.3 cm2 Mitral Valve MV E Vmax 99.4 cm/s DECEL Time 194 ms P 1/2 T 61 ms MVA (PHT) 3.6 cm2 TDI E/E' Medial 13.1 E/E' Lateral 7.4 Medial E' Peak V 7.60 cm/s Lateral E' Peak V 13.50 cm/s Pulmonary Valve PV Vmax 1.1 m/s PI End Collette. Michele 109.9 cm/s PV Peak GR 5.1 mmHg Tricuspid Valve TR Vmax 4.0 m/s RAP (EST) 15 mmHg RVSP 78.8 mmHg TR Peak GR 63.8 mmHg Left Ventricle Left ventricular cavity size is normal. There is normal LV segmental wall motion. There is mild concentric LVH. LVEF is 55-60%. Indeterminate diastolic dysfunction. Right Ventricle The right ventricle is normal in size. The right ventricular systolic function is reduced. Device lead is present in the right ventricle. Atria The left atrium is mildly dilated with and LA ESV index of 39 mL/m. The right atrium is moderately dilated. Aortic Valve Aortic valve is trileaflet. Non coronary cusp leaflet is heavily thickened. No aortic regurgitation is present. There is trivial aortic valvular stenosis. Mitral Valve Mitral valve leaflets appear normal. There is no mitral valve regurgitation noted. There is no mitral valve stenosis. Tricuspid Valve The tricuspid valve leaflets appear normal. RVSP 79 mmHg, consistent with severe pulmonary HTN. Pulmonic Valve Pulmonic valve is not well visualized. There is trace of pulmonic valvular regurgitation. Great Vessels The aortic root is normal in size. IVC is dilated and collapses <50% with inspiration. Pericardium No pericardial effusion. Other Information Quality : Technically difficult study due to body habitus Conclusion Device lead is present in the right ventricle. The left atrium is mildly dilated with and LA ESV index of 39 mL/m. IVC is dilated and collapses <50% with inspiration. Left ventricular cavity size is normal. There is mild concentric LVH. There is normal LV segmental wall motion. LVEF is 55-60%. Indeterminate diastolic dysfunction. The RV systolic function is reduced. RVSP 79 mmHg, consistent with severe pulmonary HTN. Aortic valve is trileaflet. Non coronary cusp leaflet is heavily thickened. There is trivial aortic valvular stenosis. No pericardial effusion. DICTATED BY: PRO SWIFT MD DATE: 05/04/24 1118 ELECTRONICALLY SIGNED BY: PRO SWIFT MD DATE: 05/04/24 0467 PLAN Continue: propranolol 20 mg p.o. TID Bumex 1 mg p.o. b.i.d. Spironolactone 25 mg daily Pt on Xarelto for HX of Afiib per cardiology Monitor urine output, creatinine and electrolytes Daily weights, I&O and fluid restriction venous doppler to BLE neg for DVT continue rocephin and Doxy follow cultures Echo shows severe pulmonary HTN so D- Dimer if elevated will need to rule out PE with CTA of chest. US doppler of ruq to assess for hepatic thrombus. wean steroids to prednisone 20 mg po daily x 5 days 6 min walk in am. Monitor respiratory status Consider thora if not improved Resume home meds once available 2 D echo - Chest XR in am US ruq abdomen to assess for liver pathology 6 min walk before DC' -Arrange outpatient pulmonology referral for sleep study, PFT and follow-up management upon discharge NEURO: Minimize central acting medications as possible. Maintain fall precautions, adequate lighting during the day PULMONARY: Supplemental 02 as needed. Maintain aspiration precautions at all times CARDIOVASCULAR: Follow hemodynamics. Vital signs per facility protocol GI & NUTRITION: Continue with nutritional support. Continue stool softeners and laxatives as needed. KIDNEYS & ELECTROLYTES: Strict monitoring of intake, output and overall fluid balance. Avoid nephrotoxic medications to the extent possible. Medications to be dosed according to renal function. Monitor electrolytes and replace as needed ENDOCRINE: Maintain blood glucose between 100-180 at all times. Hypoglycemia protocol in place INFECTIOUS DISEASE: Trend temperature, WBC and procalcitonin level Follow cultures, deescalate antibiotics as soon as possible. Panculture if new onset fever ONCOLOGY/HEMATOLOGY/COAGULATION: Monitor for s/s of bleeding Monitor hemoglobin, coagulation studies as needed SKIN: Pressure ulcer prevention per facility protocol Specialty mattress ORTHO/REHAB: Continue PT/OT Prophylaxis: Continue GI and DVT prophylaxis Code Status: Full Resuscitation Disposition: TBD Other: Total patient care time exceeds 35 minutes excluding all procedures. EH VIVEROS [facility] May 04, 2024 12:58
[2024-05-04 13:32] LABS: INR 1.39 (0.85-1.15); PROTHROMBIN TIME 15.1 SEC (9.6-11.6)
--- NOTE | 2024-05-04 16:57 | HMCSR ---
APPROVED REPORT EXAM: Two-dimensional and M-mode echocardiogram with Doppler and color Doppler. Study Details: Hx: morbidly obese, INDICATION ICD: Congetive heart failure 2D Dimensions RVDd4.7 cmLVEF(%)55.2 (>50%)LVED Vol(simp.)135.0 mL IVSd1.1 (0.7-1.1cm)FS(%)29 %LVES Vol(simp.)55.2 mL LVDd5.5 (3.8-5.6cm)LA (2D)5.1 (1.6-4.0cm)LVEF(%, simp.)59 % PWd1.1 (0.7-1.1cm)Ao Root(2D)3.5 (2.0-3.7cm)LA ESV INDEX (4CH)39.00 mL/m2 IVSs1.4 cmLVOT diam2.3 (1.8-2.4cm) LVDs3.9 (2.5-4.0cm) PWs1.4 cm M-Mode Dimensions EPSS1.0 cm LA (MM)5.4 (1.6-4.0cm) Ao Root(MM)3.8 (2.0-3.7cm) Aortic Valve AoV VTI0.2 mAo Mean GR4.0 mmHgLVOT VTI0.23 m SHIRLENE (VMAX)4.3 cm2AVA (VTI) 4.3 cm2 Mitral Valve MV E Vmax99.4 cm/sDECEL Hdgv693 ms P 1/2 T61 ms MVA (PHT)3.6 cm2 TDI E/E' Zxmnxn87.1E/E' Lateral7.4 Medial E' Peak V7.60 cm/sLateral E' Peak V13.50 cm/s Pulmonary Valve PV Vmax1.1 m/sPI End Collette. Michele 109.9 cm/s PV Peak GR5.1 mmHg Tricuspid Valve TR Vmax4.0 m/sRAP (EST) 15 buShNRQK56.8 mmHg TR Peak GR63.8 mmHg Left Ventricle Left ventricular cavity size is normal. There is normal LV segmental wall motion. There is mild luis ntric LVH. LVEF is 55-60%. Indeterminate diastolic dysfunction. Right Ventricle The right ventricle is normal in size. The right ventricular systolic function is reduced. Device cory d is present in the right ventricle. Atria The left atrium is mildly dilated with and LA ESV index of 39 mL/m. The right atrium is moderately d ilated. Aortic Valve Aortic valve is trileaflet. Non coronary cusp leaflet is heavily thickened. No aortic regurgitation i s present. There is trivial aortic valvular stenosis. Mitral Valve Mitral valve leaflets appear normal. There is no mitral valve regurgitation noted. There is no mitral valve stenosis. Tricuspid Valve The tricuspid valve leaflets appear normal. RVSP 79 mmHg, consistent with severe pulmonary HTN. Pulmonic Valve Pulmonic valve is not well visualized. There is trace of pulmonic valvular regurgitation. Great Vessels The aortic root is normal in size. IVC is dilated and collapses <50% with inspiration. Pericardium No pericardial effusion. Other Information Quality : Technically difficult study due to body habitus Conclusion Device lead is present in the right ventricle. The left atrium is mildly dilated with and LA ESV index of 39 mL/m. IVC is dilated and collapses <50% with inspiration. Left ventricular cavity size is normal. There is mild concentric LVH. There is normal LV segmental wall motion. LVEF is 55-60%. Indeterminate diastolic dysfunction. The RV systolic function is reduced. RVSP 79 mmHg, consistent with severe pulmonary HTN. Aortic valve is trileaflet. Non coronary cusp leaflet is heavily thickened. There is trivial aortic valvular stenosis. No pericardial effusion.
[2024-05-04] MEDS: BUMETANIDE 1 MG TAB PO SCH (20:37)
[2024-05-04] MEDS: PROPRANOLOL HCL 20 MG TAB PO SCH (20:37)
--- NOTE | 2024-05-04 21:23 | HMCIMG ---
US ABD LIMITED/ABD WALL HISTORY: WITH DOPPLER TO ACCESS HEPATIC PORTAL SYSTEM COMPARISON: None FINDINGS: The portal vein is patent IMPRESSION: Patent portal vein.
[2024-05-05] VITALS (17 sets, daily range): BP systolic 112–137; BP diastolic 65–78; PULSE 69–115; RESP 16–20; TEMP 97.4–98.6; O2SAT 91–96
[2024-05-05 04:03] LABS: BASOPHILS # (AUTO) 0.05 K/uL (0.00-0.20); BASOPHILS % (AUTO) 0.5 % (0.0-5.0); EOSINOPHILS # (AUTO) 0.11 K/uL (0.00-0.70); EOSINOPHILS % (AUTO) 1.1 % (0.0-8.0); HEMATOCRIT 33.9 % (42-54); IMMATURE GRANULOCYTE ABSOLUTE 0.05 K/uL (0-1); LYMPHOCYTES # (AUTO) 2.2 K/uL (1.0-4.8); LYMPHOCYTES % (AUTO) 22.9 % (21.0-51.0); MEAN CORPUSCULAR HGB CONC 32.7 g/dL (32.0-36.0); MEAN CORPUSCULAR VOLUME 94.7 fL (79-99); MONOCYTES # (AUTO) 0.9 K/uL (0.1-1.0); MONOCYTES % (AUTO) 9.1 % (3.0-13.0); NEUTROPHILS # (AUTO) 6.3 K/uL (1.8-7.7); NEUTROPHILS % (AUTO) 65.9 % (40.0-77.0); PLATELET COUNT (AUTO) 125 K/uL (130-400); RED BLOOD CELL COUNT(AUTO) 3.58 MIL/uL (4.50-6.20); RED CELL DISTRIBUTION WIDTH 13.8 % (11.0-15.5); WHITE BLOOD COUNT (AUTO) 9.6 K/uL (4.8-10.8)
[2024-05-05 04:24] LABS: ALBUMIN 3.2 g/dL (3.5-5.0); BILIRUBIN,TOTAL 0.8 mg/dL (0.2-1.0); POTASSIUM 3.7 mmol/L (3.5-5.1); TOTAL PROTEIN, SERUM 6.2 g/dL (6.0-8.3)
[2024-05-05 04:27] LABS: B-TYPE NATRIURETIC PEPTIDE 146 pg/mL (0-100)
[2024-05-05] MEDS: predniSONE 20 MG TABLET PO SCH (09:51)
[2024-05-05] MEDS: SPIRONOLACTONE 25 MG TAB PO SCH (09:52)
[2024-05-05] MEDS ORDERED: IOHEXOL-350 75 ML VIAL IV ONE (10:43)
--- NOTE | 2024-05-05 11:18 | HMCIMG ---
CT CHEST PE PROTOCOL [facility] CONT REASON: ELEVATED D-DIMER TECHNIQUE: Thin axial images through the chest were obtained during bolus intravenous administration of 75 ml of Omnipaque 350. Sagittal and coronal reconstruction images were performed. FINDINGS: There is a small left pleural effusion. There is mild bibasilar atelectasis. Lungs are otherwise clear. There are no focal masses or infiltrates. There is mild cardiomegaly. There is no pulmonary vascular congestion. There are diffuse coronary artery calcifications. Contrast outlines normal appearing central pulmonary arteries. There is no CT evidence of PE. There is no evidence of aortic to aneurysm or dissection. There is no hilar or mediastinal lymphadenopathy. Chest wall structures are normal. Visualized upper abdominal structures are unremarkable. IMPRESSION: 1. Small left pleural effusion, there is also bibasilar atelectasis. 2. Mild cardiomegaly, there is coronary artery calcification. 3. No CT evidence of PE or aortic dissection. CT was performed with one or more following dose reduction techniques: automated exposure control, adjustment of the mA and kv according to patient's size, or use of a iterative reconstruction technique.
--- NOTE | 2024-05-05 15:05 | NUR ---
PATIENT WALKED FOR 4 MINUTES THEN BECAME VERY SOB. PATIENT REQUESTED TO STOP AND WAS WHEELED TO HIS ROOM. Addendum: 05/05/24 at 1506 by ANGELA ALICIA, RT RT Amended: Links added.
[2024-05-05] MEDS ORDERED: DOXY100T2 PO (16:08)
[2024-05-05] MEDS ORDERED: IPRNEB NEB (16:08)
--- NOTE | 2024-05-05 20:36 | PN ---
[facility] PROGRESS NOTE Date Patient Seen: May 05, 2024 Time of Visit: 20:29 Supervising Physician: Dr. Nik Schmidt Primary Care Physician: [Dr. Andrey Beaver] Outpatient Specialists: [ ] Inpatient Consults: [ ] PROBLEM LIST: Acute on chronic satge III diastolic heart failure, POA EF 55 -60% Severe Pulmonary HTN RVSP 78.8 pulmonary hypertension. pending (PE rule out) Well's score of 4.5 for PE Liver Cirrhosis Meld Score 1.39 (multifactorial fatty vs hx of alcohols use) POA Acute respiratory failure, POA, on 2LNC Suspected Asthma exacerbation Chronic lymphedema with anasarca Neg for DVT Hypertension Hyperlipidemia AFib on Xarelto s/p PPM History of seizures Former smoker former alcohol use. [This is an 84-year-old male with a history of chronic diastolic heart failure and atrial fibrillation on outpatient Xarelto presented to the ED for evaluation of cough and flu-like symptoms associated with the congestion. Patient was noted to be fluid overload with 3+ bilateral swelling to lower extremities reaching up to his lower abdomen. He also has bilateral wheezing on auscultation, denies any history of COPD, asthma, pulmonary fibrosis or home O2 use, although he was noted to have a Wixela inhaler on his listed medications. INTERVAL HISTORY: Patient was seen sitting in his chair at bedside with present. He is currently on room air, denies any chest pain or discomfort, no nausea or vomi ting. Patient was tolerating his diet well. Tolerating physical therapy as well. At this time patient is known to have failed his 6 minute walk for home O2 evaluation, currently pending orders for home O2 to be delivered which will likely happen tomorrow. At this time the patient's discharge will be canceled as he has not received the equipment yet and we will re-evaluate in the morning for discharge once home O2 delivery has been confirmed. Patient was made aware of the current plan and he is in agreement, no changes to medical management at this time. REVIEW OF SYSTEMS: 12 point ROS reviewed with patient. Pertinent positives mentioned above. Otherwise negative. PHYSICAL EXAM: GENERAL: alert, weak, awake oriented x 3, on 2LNC HEENT: EOMI, Sclera non icteric, moist mucosa NECK: Supple, no JVD, trachea midline LUNGS: Lung sounds are clear to all lobes, slightly diminished. no further wheezing. HEART: Regular rate and rhythm. Normal S1 and S2, without murmurs ABD: Abdomen soft, nontender. Bowel sounds present EXT: No clubbing, cyanosis, positive 2+ bilateral non-pitting edema NEURO: Alert and oriented to person, follows commands Vital Signs (last 8hr) Date Time Temp Pulse Resp B/P (MAP) Pulse Ox O2 Delivery O2 Flow Rate FiO2 05/05/24 19:49 71 18 N/A Room Air 05/05/24 19:48 74 19 05/05/24 16:00 97.5 78 16 112/70 97 Room Air 21 05/05/24 15:03 90 20 21 115 20 21 05/05/24 14:09 70 18 LABS: Hematology Labs: Test 05/05/24 03:55 05/04/24 05:20 Range/Units White Blood Count 9.6 4.8-10.8 K/uL Red Blood Count 3.58 L 4.50-6.20 MIL/uL Hemoglobin 11.1 L 14.0-18.0 g/dL Hematocrit 33.9 L 42-54 % Mean Corpuscular Volume 94.7 79-99 fL Mean Corpuscular Hemoglobin 31.0 27.0-33.0 pg Mean Corpuscular Hemoglobin Concent 32.7 32.0-36.0 g/dL Red Cell Distribution Width 13.8 11.0-15.5 % Platelet Count 125 L 130-400 K/uL Mean Platelet Volume 10.1 7.5-10.5 fL Immature Granulocyte % (Auto) 0.5 0-1 % Neutrophils (%) (Auto) 65.9 40.0-77.0 % Lymphocytes (%) (Auto) 22.9 21.0-51.0 % Monocytes (%) (Auto) 9.1 3.0-13.0 % Eosinophils (%) (Auto) 1.1 0.0-8.0 % Basophils (%) (Auto) 0.5 0.0-5.0 % Neutrophils # (Auto) 6.3 1.8-7.7 K/uL Lymphocytes # (Auto) 2.2 1.0-4.8 K/uL Monocytes # (Auto) 0.9 0.1-1.0 K/uL Eosinophils # (Auto) 0.11 0.00-0.70 K/uL Basophils # (Auto) 0.05 0.00-0.20 K/uL Absolute Immature Granulocyte (auto 0.05 0-1 K/uL Nucleated Red Blood Cells 0.0 0.0-0.19 % Segmented Neutrophils % 65 40-70 % Lymphocytes % (Manual) 27 22-44 % Monocytes % (Manual) 8 2-9 % Differential Comment MANUAL DIFFERENTIAL White Cell Morphology Comment SMUDGE CELLS 1+ Platelet Morphology Comment See comments Red Blood Cell Morphology HYPOCHROM CELLS 1+ Chemistry Labs: Test 05/05/24 19:30 05/05/24 03:55 05/04/24 05:20 Range/Units Whole Blood Glucose 136 H 70-110 MG/DL Sodium Level 141 136-145 mmol/L Potassium Level 3.7 3.5-5.1 mmol/L Chloride Level 101 101-111 mmol/L Carbon Dioxide Level 35 H 21-32 mmol/L Blood Urea Nitrogen 16 7-18 mg/dL Creatinine 1.0 0.5-1.3 mg/dL Glomerular Filtration Rate Calc 75 >90 mL/min Random Glucose 97 70-105 mg/dL Lactic Acid Level 1.6 0.8-2.5 mmol/L Total Calcium 8.8 8.5-10.1 mg/dL Total Bilirubin 0.8 0.2-1.0 mg/dL Aspartate Amino Transf (AST/SGOT) 27 10-37 U/L Alanine Aminotransferase (ALT/SGPT) 29 12-78 U/L Alkaline Phosphatase 113 50-136 U/L B-Type Natriuretic Peptide 146 H 0-100 pg/mL Total Protein 6.2 6.0-8.3 g/dL Albumin 3.2 L 3.5-5.0 g/dL Procalcitonin < 0.05 L 0.05-0.5 ng/mL Ammonia 19 11-32 umol/L Coagulation Labs: Test 05/05/24 03:55 05/04/24 13:17 Range/Units D-Dimer Quantitative (PE/DVT) 1270 *H 0-500 ng/mL Prothrombin Time 15.1 H 9.6-11.6 SEC Prothromb Time International Ratio 1.39 H 0.85-1.15 DIAGNOSTICS / RADIOLOGY RESULTS: [ ] PLAN Continue: propranolol 20 mg p.o. TID Bumex 1 mg p.o. b.i.d. Spironolactone 25 mg daily Pt on Xarelto for HX of Afiib per cardiology Monitor urine output, creatinine and electrolytes Daily weights, I&O and fluid restriction venous doppler to BLE neg for DVT continue rocephin and Doxy follow cultures Echo shows severe pulmonary HTN so D- Dimer if elevated will need to rule out PE with CTA of chest. US doppler of ruq to assess for hepatic thrombus. wean steroids to prednisone 20 mg po daily x 5 days 6 min walk in am. Monitor respiratory status Consider thora if not improved Resume home meds once available 2 D echo - Chest XR in am US ruq abdomen to assess for liver pathology 6 min walk before DC' -Arrange outpatient pulmonology referral for sleep study, PFT and follow-up management upon discharge NEURO: Minimize central acting medications as possible. Maintain fall precautions, adequate lighting during the day PULMONARY: Supplemental 02 as needed. Maintain aspiration precautions at all times CARDIOVASCULAR: Follow hemodynamics. Vital signs per facility protocol GI & NUTRITION: Continue with nutritional support. Continue stool softeners and laxatives as needed. KIDNEYS & ELECTROLYTES: Strict monitoring of intake, output and overall fluid balance. Avoid nephrotoxic medications to the extent possible. Medications to be dosed according to renal function. Monitor electrolytes and replace as needed ENDOCRINE: Maintain blood glucose between 100-180 at all times. Hypoglycemia protocol in place INFECTIOUS DISEASE: Trend temperature, WBC and procalcitonin level Follow cultures, deescalate antibiotics as soon as possible. Panculture if new onset fever ONCOLOGY/HEMATOLOGY/COAGULATION: Monitor for s/s of bleeding Monitor hemoglobin, coagulation studies as needed SKIN: Pressure ulcer prevention per facility protocol Specialty mattress ORTHO/REHAB: Continue PT/OT Prophylaxis: Continue GI and DVT prophylaxis Code Status: Full Resuscitation Disposition: TBD Other: Total patient care time exceeds 35 minutes excluding all procedures. JD CAMARA May 05, 2024 20:35
[2024-05-06] VITALS (9 sets, daily range): BP systolic 120–133; BP diastolic 62–73; PULSE 64–74; RESP 18–20; TEMP 97.9–98.5; O2SAT 94–97
[2024-05-06 03:50] LABS: BASOPHILS # (AUTO) 0.05 K/uL (0.00-0.20); BASOPHILS % (AUTO) 0.6 % (0.0-5.0); EOSINOPHILS # (AUTO) 0.22 K/uL (0.00-0.70); EOSINOPHILS % (AUTO) 2.5 % (0.0-8.0); HEMATOCRIT 36.4 % (42-54); IMMATURE GRANULOCYTE ABSOLUTE 0.04 K/uL (0-1); LYMPHOCYTES # (AUTO) 2.2 K/uL (1.0-4.8); LYMPHOCYTES % (AUTO) 25.3 % (21.0-51.0); MEAN CORPUSCULAR HGB CONC 33.2 g/dL (32.0-36.0); MEAN CORPUSCULAR VOLUME 93.3 fL (79-99); MONOCYTES # (AUTO) 0.9 K/uL (0.1-1.0); NEUTROPHILS # (AUTO) 5.3 K/uL (1.8-7.7); NEUTROPHILS % (AUTO) 61.1 % (40.0-77.0); PLATELET COUNT (AUTO) 141 K/uL (130-400); RED CELL DISTRIBUTION WIDTH 13.6 % (11.0-15.5); WHITE BLOOD COUNT (AUTO) 8.7 K/uL (4.8-10.8)
[2024-05-06 04:15] LABS: ALBUMIN 3.3 g/dL (3.5-5.0); CREATININE 0.9 mg/dL (0.5-1.3); POTASSIUM 3.7 mmol/L (3.5-5.1); TOTAL PROTEIN, SERUM 6.5 g/dL (6.0-8.3)
[2024-05-06 04:19] LABS: B-TYPE NATRIURETIC PEPTIDE 184 pg/mL (0-100)
--- NOTE | 2024-05-06 12:25 | NUR ---
DC NOTE DC INSTRUCTIONS AND FOLLOW UP APPOINTMENT GIVEN TO PT AND SPOUSE AT BEDSIDE. VERBALIZED UNDERSTANDING. PIV REMOVED, CATHETER INTACT, DENIES ANY PAIN OR DISCOMFORT. PT IS WHEELED DOWNSTAIRS WITH [employer]LEVARD [employer]ER INTO VIA PRIVATE CAR. NO FURTHER COMMENTS OR CONCERNS AT THIS TIME.
--- NOTE | 2024-05-06 15:00 | DS ---
[facility] DISCHARGE SUMMARY Date Patient Seen: May 06, 2024 Time of Visit: 15:00 Supervising Physician: Dr. Nik Schmidt Primary Care Physician: [Dr. Andrey Beaver] Outpatient Specialists: [ ] Inpatient Consults: [ ] HOSPITAL COURSE: HPI (per admitting provider) This is an 84-year-old male with a history of chronic diastolic heart failure and atrial fibrillation on outpatient Xarelto presented to the ED for evaluation of cough and flu-like symptoms associated with the congestion. Patient was noted to be fluid overload with 3+ bilateral swelling to lower extremities reaching up to his lower abdomen. He also has bilateral wheezing on auscultation, denies any history of COPD, asthma, pulmonary fibrosis or home O2 use, although he was noted to have a Wixela inhaler on his listed medications. His labs on admission were generally unremarkable with WBC of 6, hemoglobin 12, platelets 127, sodium 140, potassium 3.6, bicarb 29, BUN 4, creatinine 0.8. His flu and COVID swabs were negative, BNP was 145, lactic acid was 1.9, LFTs within normal range. His CXR did show small left pleural effusion basilar atelectasis and even small R-sided effusion. Patient was treated with a dose of Lasix 80 mg and Rocephin in the ED. of note patient did have an echocardiogram on 12/19/2023 which revealed an LVEF of 65-70% with stage III diastolic dysfunction. Patient states he has had a productive cough with thick green phlegm since Thursday. Also admits orthopnea. Has 3+ swelling to bilateral lower extremities which is nonpitting. He is on supplemental oxygen with 2 LNC, and mild respiratory distress, but able to speak full sentences. The patient was treated for the following problems: ACTIVE PROBLEM LIST FOR THE HOSPITALIZATION: Acute on chronic satge III diastolic heart failure, POA EF 55 -60%, , resolved, patient at baseline Severe Pulmonary HTN RVSP 78.8 pulmonary hypertension. pending (PE rule out) Well's score of 4.5 for PE, resolved Liver Cirrhosis Meld Score 1.39 (multifactorial fatty vs hx of alcohols use) POA, Acute respiratory failure, POA, on 2LNC, resolved Suspected Asthma exacerbation CHRONIC PROBLEMS: continue previous management per PCP unless otherwise indicated Chronic lymphedema with anasarca Neg for DVT Hypertension Hyperlipidemia AFib on Xarelto s/p PPM History of seizures Former smoker former alcohol use. PITCH FLA[employer]ER FINDINGS/RECOMMENDATIONS: [ ] PROCEDURES: as mentioned above DISCHARGE MEDICATIONS: Pt hemodynamically stable and afebrile at time of discharge. PCP notified of patients admission, hospital course and discharge. PHYSICAL EXAM: GENERAL: alert, weak, awake oriented x 3, on 2LNC HEENT: EOMI, Sclera non icteric, moist mucosa NECK: Supple, no JVD, trachea midline LUNGS: Lung sounds are clear to all lobes, slightly diminished. no further wheezing. HEART: Regular rate and rhythm. Normal S1 and S2, without murmurs ABD: Abdomen soft, nontender. Bowel sounds present EXT: No clubbing, cyanosis, positive 2+ bilateral non-pitting edema NEURO: Alert and oriented to person, follows commands FOLLOW-UP: Follow-up with PCP in 2-3 days RECOMMENDATIONS: See Discharge Instructions This case was seen and discussed with my supervising physician. More than 30 minutes spent on discharge process, including evaluation of the patient, discussion with nursing staff, medication reconciliation and follow-up appointments JD CAMARA May 06, 2024 15:00
== END 2024-05-06 12:25 | disposition home or self-care (01) | DRG 291 ==
LOC: EDH 07:45 → EDHIP 09:28 → OBSVTOIN 09:28 → 3AH 19:58
PROVIDERS: ADMIT Internal Medicine Pulmonary Disease; ATTEND Internal Medicine Pulmonary Disease
DX: I11.0 Hypertensive heart disease with heart failure (principal); I50.33 Acute on chronic diastolic (congestive) heart failure; J96.00 Acute respiratory failure, unspecified whether with hypoxia or hypercapnia; J45.901 Unspecified asthma with (acute) exacerbation; E78.5 Hyperlipidemia, unspecified; G89.29 Other chronic pain; I27.20 Pulmonary hypertension, unspecified; K74.60 Unspecified cirrhosis of liver; I48.91 Unspecified atrial fibrillation; Z20.822 Contact with and (suspected) exposure to COVID-19; I89.0 Lymphedema, not elsewhere classified; Z79.01 Long term (current) use of anticoagulants; Z87.891 Personal history of nicotine dependence; Z95.0 Presence of cardiac pacemaker; Z79.899 Other long term (current) drug therapy
CPT/HCPCS: 36415; 71045; 71270; 76705; 80048; 80053; 80076; 81003; 82140; 82550; 82948; 83605; 83735; 83880; 84100; 84145; 84443; 84484; 85025; 85027; 85378; 85610; 87040; 87071; 87205; 87420; 87426; 87804; 93005; 93306; 93970; 94640; 94664; 94667; 94668; 94760; 96372; 96374; 99285; G0378; J0696; J1650; J1940; J2919; J3490; Q9967